=== PATIENT | female | born 1970 | race Caucasian/White ===

== ENCOUNTER → 2018-02-25 | Outpatient (CLI) | payer MEDICAID, BC ==
--- NOTE | 2018-02-25 09:59 | MR ---
EXAMINATION TYPE: MR hip LT wo con DATE OF EXAM: 02/25/2018 9:34 AM COMPARISON: NONE HISTORY: Chronic lt hip pain, no trauma TECHNIQUE: Multiplanar, multiecho imaging of the left hip is performed without IV contrast. FINDINGS: There is no evidence of avascular necrosis. There is no evidence of bursal inflammation. Mu scular insertions sites are unremarkable. There is only a small amount of joint fluid. The joint spac e appears maintained. The uterus is not identified. The ovaries are also not seen. IMPRESSION: 1. NO ACUTE OSSEOUS LESION. 2. NO DEFINITE BURSAL OR TENDINOUS ABNORMALITY.
== END | disposition home or self-care (01) ==
LOC: RADMRIMAIN 08:27
PROVIDERS: ATTEND Family Medicine
DX: M25.552 Pain in left hip (principal)

== ENCOUNTER → 2018-04-28 | Outpatient (CLI) | payer BC ==
--- NOTE | 2018-04-28 16:03 | XR ---
EXAMINATION TYPE: XR lumbar spine 2 or 3V DATE OF EXAM: 04/28/2018 CLINICAL HISTORY: pain TECHNIQUE: Three views of the lumbar spine are submitted. COMPARISON: None. FINDINGS: There are 5 lumbar type vertebral bodies identified. The lumbar spine shows satisfactory alignment w ithout evidence of acute fracture or dislocation. Vertebral body heights are within normal limits. Disc spaces are within normal limits. The overlying soft tissue appears unremarkable. IMPRESSION: No acute fracture or dislocation is seen in the lumbar spine. ICD 10 NO FRACTURE, INITIAL EVALUATION
== END ==
LOC: RADXRMAIN 15:34
PROVIDERS: ATTEND Orthopaedic Surgery
DX: M54.16 Radiculopathy, lumbar region (principal)
CPT/HCPCS: 72100

== ENCOUNTER → 2018-07-25 | Outpatient (CLI) | payer MEDICAID, BC ==
[2018-07-25 15:15] VITALS: BP 121/69; PULSE 85; TEMP 98; BMI 27.6
--- NOTE | 2018-07-25 17:11 | P.BASOAP ---
Subjective Progress Note Date: 07/25/18 Principal diagnosis: Morbid obesity Patient well-known to our service from previous lap band placement. Patient had been following at [facility]. Patient asking for a lap band adjustment. In June she had 0.2 mL added to her band. She does not feel much restriction. Denies reflux or vomiting. No abdominal pain. Objective - Vital Signs Vital signs: Vital Signs Temp 98 F 07/25/18 15:12 Pulse 85 07/25/18 15:12 Resp BP 121/69 07/25/18 15:12 Pulse Ox Intake & Output 07/24/18 07/25/18 07/25/18 18:59 06:59 18:59 Weight 77.564 kg - Exam Abdomen: Soft, nontender, nondistended Assessment/Plan (1) Morbid obesity Narrative/Plan: Will proceed with band adjustment. We'll tentatively and 0.2 mL at this time. The patient's lap band port was palpated. The site was aseptically prepped. The Pardo needle was advanced into the port. A total of 0.2 ml of fluid was added for total of 7.9 mL. Pressure was held and a sterile dressing was applied. Plan: Date: 07/25/18 Initial Weight: Initial BMI: Current Weight: 77.564 kg Current BMI: 27.6 Type of Surgery: Total Volume in Band: 7.9 Previous Volume: Volume Removed: Volume Added: 0.2 Band Size:
== END ==
LOC: BARWHC3 13:48
PROVIDERS: ATTEND Surgery
DX: E66.01 Morbid (severe) obesity due to excess calories (principal); Z68.27 Body mass index [BMI] 27.0-27.9, adult
CPT/HCPCS: 99212

== ENCOUNTER → 2018-08-01 | Outpatient (CLI) | payer MEDICAID, BC ==
--- NOTE | 2018-08-01 10:08 | FL ---
EXAMINATION TYPE: FL barium swallow DATE OF EXAM: 08/01/2018 LAP BANDING LIMITED ESOPHAGRAM: CLINICAL HISTORY: Lap band placed 8 years ago with recent increase filled but persistent feeling of weight gain per patient. GERD per order. TECHNIQUE: Limited esophagram is performed utilizing 2-3 oz of barium. A total of 17 seconds of fluo roscopic time was utilized during procedure. 26 images are saved including preprocedure regional rehabilitation director image. COMPARISON: Esophagram study September 30, 2010. FINDINGS: Pre-procedure regional rehabilitation director image shows lap band in stable and satisfactory position in proximal stomach just below the gastroesophageal junction. Cholecystectomy clips are incidentally noted. The patient then drank oral contrast. There is good flow of contrast along the course of the esophagu s. There is good flow of contrast along the course of the lap band, there is no evidence of contrast extravasation to suggest leak. There is no lap band slippage appreciated. IMPRESSION: No evidence of lap band slippage or significant obstruction. Images are saved for ordering surgeon.
== END | disposition home or self-care (01) ==
LOC: RADFLMAIN 09:20
PROVIDERS: ATTEND Surgery
DX: K21.9 Gastro-esophageal reflux disease without esophagitis (principal)
CPT/HCPCS: 74220

== ENCOUNTER 2018-08-15 19:10 | Emergency (ER) | payer MEDICAID, BC ==
--- NOTE | 2018-08-15 21:16 | ED ---
General Adult HPI - General Source: patient Mode of arrival: ambulatory Limitations: no limitations <Margaret Sanchez - Last Filed: 08/15/18 23:03> <Korin Rendon - Last Filed: 08/16/18 21:58> - General Chief complaint: Extremity Injury, Lower Stated complaint: Rt leg/poss blood clot Time Seen by Provider: 08/15/18 20:29 - History of Present Illness Initial comments: 48-year-old female patient presents to the emergency department today for evaluation of right posterior thigh and right posterior knee pain. Patient states that she has been having this pain since yesterday. Patient states about a week ago she did crawl through a window and sustained bruising to the posterior thigh and the right posterior calf. Patient states that things seem to be improving until she started having a new pain to these areas yesterday. Patient states she did have a d-dimer drawn and it was just over 2. Patient d oes have a history of MTHFR and is concerned she may have a blood clot. Patient denies any swelling to the leg. Denies any numbness or tingling. States she is able to ablate without difficulty. She denies any chest pain or shortness of breath. Patient denies any recent rash, fever, chills, abdominal pain, nausea, vomiting, diarrhea, constipation, back pain, numbness, tingling, dizziness, weak ness, hematuria, dysuria, urinary urgency, urinary frequency, headache, visual changes, or any other complaints. (Margaret Sanchez) - Related Data Home Medications Medication Instructions Recorded Confirmed No Known Home Medications 07/25/18 07/25/18 Allergies Allergy/AdvReac Type Severity Reaction Status Date / Time Penicillins Allergy Rash/Hives Verified 07/25/18 15:20 prednisone Allergy Dyspnea Verified 07/25/18 15:20 Sulfa (Sulfonamide Allergy Rash/Hives Verified 07/25/18 15:20 Antibiotics) Review of Systems ROS Other: All systems not noted in ROS Statement are negative. <Margaret Sanchez - Last Filed: 08/15/18 23:03> ROS Other: All systems not noted in ROS Statement are negative. <Korin Rendon - Last Filed: 08/16/18 21:58> ROS Statement: Those systems with pertinent positive or pertinent negative responses have been documented in the HPI. Past Medical History Past Medical History: No Reported History Additional Past Medical History / Comment(s): mthf History of Any Multi-Drug Resistant Organisms: None Reported Past Surgical History: Bariatric Surgery, Cholecystectomy, Hysterectomy Additional Past Surgical History / Comment(s): lap band surgery Past Anesthesia/Blood Transfusion Reactions: No Reported Reaction Past Psychological History: No Psychological Hx Reported Smoking Status: Never smoker Past Alcohol Use History: None Reported Past Drug Use History: None Reported <Margaret Sanchez M - Last Filed: 08/15/18 23:03> General Exam Limitations: no limitations General appearance: alert, in no apparent distress, other (Physical well- developed, well-nourished adult female patient in no acute distress. Vital signs upon presentation are temperature 98.1F, pulse 85, respirations 16, blood pressure 117/77, pulse ox 99% on room air.) Eye exam: Present: normal appearance, PERRL, EOMI. Absent: scleral icterus, conjunctival injection, periorbital swelling ENT exam: Present: normal exam, normal oropharynx, mucous membranes moist Respiratory exam: Present: normal lung sounds bilaterally. Absent: respiratory distress, wheezes, rales, rhonchi, stridor Cardiovascular Exam: Present: regular rate, normal rhythm, normal heart sounds. Absent: systolic murmur, diastolic murmur, rubs, gallop, clicks Extremities exam: Present: full ROM, tenderness (Numbness to the right posterior thigh and posterior any), normal capillary refill, other (There is ecchymosis noted to the right posterior thigh and right calf. Skin is otherwise pink, warm, dry. Cap refills less than 3 seconds. Pedal and posttibial pulses are 2+ and equal bilaterally. No swelling or erythema noted.). Absent: normal inspection, pedal edema, joint swelling, calf tenderness Neurological exam: Present: alert, oriented X3, CN II-XII intact Psychiatric exam: Present: normal affect, normal mood Skin exam: Present: warm, dry, intact, normal color. Absent: rash <Margaret Sanchez M - Last Filed: 08/15/18 23:03> Course Vital Signs 08/15/18 08/15/18 19:34 22:02 Temperature 98.1 F 97.8 F Pulse Rate 85 73 Respiratory 16 17 Rate Blood Pressure 117/77 106/94 O2 Sat by Pulse 99 99 Oximetry Medical Decision Making - Radiology Data Radiology results: report reviewed, image reviewed <Margaret Sanchez - Last Filed: 08/15/18 23:03> <Korin Rendon - Last Filed: 08/16/18 21:58> - Medical Decision Making 48-year-old female patient presents to the emergency department today for eval uation of right posterior thigh and knee pain. Physical examination does reveal ecchymosis to the right posterior thigh and right calf. Patient sustained his injuries or climb into a window. Patient states she has had increased pain since yesterday was concern for blood clot. Ultrasound was obtained and showed no evidence for DVT. We did discuss ice application and use of anti- inflammatory medication for pain relief. She is instructed to follow-up with her primary care physician for recheck in 1-2 days. Return parameters were discussed in detail. She verbalizes understanding and agrees with this plan. (Margaret Sanchez) I was available for consultation in the emergency department. The history and physical exam were done by the midlevel provider. I was consulted for this patient's care. I reviewed the case with the midlevel provider and based on their presentation of the patient, I agree with the assessment, medical decision making and plan of care as documented. (Korin Rendon) - Radiology Data Venous Doppler duplex of the right lower extremity was obtained. Report was reviewed in its entirety. Impression by Dr. Halina Naranjo shows negative for DVT. (Margaret Sanchez) Disposition Is patient prescribed a controlled substance at d/c from ED?: No Time of Disposition: 21:48 <Margaret Sanchez - Last Filed: 08/15/18 23:03> <Korin Rendon - Last Filed: 08/16/18 21:58> Clinical Impression: Contusion of right lower extremity Disposition: HOME SELF-CARE Condition: Good Instructions (If sedation given, give patient instructions): Contusion in Adults (ED) Additional Instructions: Apply ice to the painful areas. Follow-up with your primary care physician for recheck in 1-2 days. Return to the emergency department immediately for any new, worsening, or concerning symptoms. Referrals: Steven Simon DO [Primary Care Provider] - 1-2 days
--- NOTE | 2018-08-15 21:45 | US ---
EXAMINATION TYPE: US venous doppler duplex LE RT DATE OF EXAM: 08/15/2018 8:41 PM COMPARISON: NONE CLINICAL HISTORY: Pain. Pain. SIDE PERFORMED: Right TECHNIQUE: The lower extremity deep venous system is examined utilizing real time linear array sonog dean with graded compression, doppler sonography and color-flow sonography. VESSELS IMAGED: External Iliac Vein (EIV) Common Femoral Vein Deep Femoral Vein Greater Saphenous Vein * Femoral Vein Popliteal Vein Small Saphenous Vein * Proximal Calf Veins (* superficial vessels) FINDINGS: Grayscale, color doppler, spectral doppler imaging performed of the deep veins of the lower extremities. There is normal flow, compressibility, vascular waveforms. IMPRESSION: NEGATIVE FOR DVT, RIGHT LOWER EXTREMITY.
[2018-08-15 22:03] VITALS: BP 106/94; PULSE 73; RESP 17; TEMP 97.8
== END 2018-08-15 22:05 | disposition home or self-care (01) ==
LOC: EC 19:10
DX: S80.11XA Contusion of right lower leg, initial encounter (principal); S70.11XA Contusion of right thigh, initial encounter; R20.0 Anesthesia of skin; Z88.0 Allergy status to penicillin; Z88.2 Allergy status to sulfonamides; Z88.8 Allergy status to other drugs, medicaments and biological substances; X58.XXXA Exposure to other specified factors, initial encounter; Y93.39 Activity, other involving climbing, rappelling and jumping off
CPT/HCPCS: 99283

== ENCOUNTER → 2018-09-05 | Outpatient (CLI) | payer MEDICAID, BC ==
[2018-09-05 14:11] VITALS: BP 118/80; PULSE 70; RESP 16; TEMP 98.1; BMI 29.2
--- NOTE | 2018-09-05 16:31 | P.BASOAP ---
Subjective Progress Note Date: 09/05/18 Principal diagnosis: Morbid obesity Patient returns for follow-up. She has noticed a progressive decline in her restrictions since earlier this year. The patient has had a few small adjustments recently. The last adjustment was early July. She had 0.2 mL added. She felt some restriction for only a few days before that resolved. Here today for reevaluation. She did have an upper GI performed in early July which was normal. Objective - Vital Signs Vital signs: Vital Signs Temp 98.1 F 09/05/18 14:08 Pulse 70 09/05/18 14:08 Resp 16 09/05/18 14:08 BP 118/80 09/05/18 14:08 Pulse Ox Intake & Output 09/04/18 09/05/18 09/05/18 18:59 06:59 18:59 Weight 82.1 kg - Exam Abdomen: Soft, nontender, nondistended Assessment/Plan (1) Morbid obesity Narrative/Plan: Patient's band was sterilely accessed. The patient should have approximately 8 mL in the band. Instead only 4 mL was identified. Very slight cloudiness to the fluid was identified. Will check fluoroscopy esophagram. Possible lap band port replacement to follow. Plan: Date: 09/05/18 Initial Weight: 112.945 kg Initial BMI: 40.1 Current Weight: 82.1 kg Current BMI: 29.2 Type of Surgery: Total Volume in Band: 7.9 Previous Volume: Volume Removed: Volume Added: Band Size:
== END ==
LOC: BARWHC3 13:48
PROVIDERS: ATTEND Surgery
DX: E66.01 Morbid (severe) obesity due to excess calories (principal); Z68.29 Body mass index [BMI] 29.0-29.9, adult
CPT/HCPCS: 99212

== ENCOUNTER → 2018-09-15 | Outpatient (CLI) | payer MEDICAID, BC ==
--- NOTE | 2018-09-15 13:27 | P.PCN ---
Date of Procedure: 09/15/18 Procedure(s) Performed: PREOPERATIVE DIAGNOSIS: LAP-BAND system leak POSTOPERATIVE DIAGNOSIS: Leak from LAP-BAND port tubing PROCEDURE: Fluoroscopy fill SURGEON: Dorinda EBL: None ANESTHESIA: None COMPLICATIONS: None OPERATIVE PROCEDURE: Patient placed on the fluoroscopy table supine. The skin was prepped sterilely. The Pardo needle was advanced into the port. Using injectable contrast the system was evaluated. Immediately I was able to identify contrast leaking from the port tubing just adjacent to the junction with the port. No other identifiable leaks were seen. At that point the needle was withdrawn. Dressing applied. DISPOSITION: Stable for discharge
--- NOTE | 2018-09-15 14:14 | FL ---
EXAMINATION TYPE: FL guided adjust gastric band DATE OF EXAM: 09/15/2018 COMPARISON: NONE HISTORY: Possible lap band leak TECHNIQUE: Fluoroscopy. FINDINGS: Fluoroscopic guidance was provided during procedure performed by Dr. Seth. A total of 19 seconds of fluoroscopic time was utilized during the procedure and 2 spot images was acquired during injection of 5 cc of Isovue 370 under fluoroscopy. IMPRESSION: As Above.
== END | disposition home or self-care (01) ==
LOC: RADFLWHC 11:41
PROVIDERS: ATTEND Surgery
DX: K95.09 Other complications of gastric band procedure (principal); Z88.0 Allergy status to penicillin; Z88.2 Allergy status to sulfonamides; Z88.8 Allergy status to other drugs, medicaments and biological substances
CPT/HCPCS: 74240; Q9967

== ENCOUNTER 2018-10-13 10:42 | Day surgery (SDC) | payer MEDICAID, BC ==
[2018-10-12 11:55] VITALS: BMI 24.2
[~2018-10-13 10:42] MED LIST: HEPARIN SODIUM,PORCINE 5,000 UNIT/ML 1 ML VIAL SQ ONE; ceFAZolin IN SWFI 2 GM/20 ML SYRINGE IVP ONE
[2018-10-13] MEDS ORDERED: LIDOCAINE 1% 20 ML VIAL (10MG/ML) FOR IV START INTRADERMA ONE (11:10)
[2018-10-13] MEDS ORDERED: LACTATED RINGERS 1,000 ML IV ONE ×2 (11:10→14:10)
[2018-10-13] MEDS ORDERED: DEXAMETHASONE SOD PHOS (MDV) 100 MG/10 ML VIAL IV ONE (11:11)
[2018-10-13] MEDS ORDERED: ONDANSETRON 4 MG/2 ML VIAL IVP ONE ×2 (11:11→16:03)
--- NOTE | 2018-10-13 12:45 | P.GSHP ---
History of Present Illness H&P Date: 10/13/18 Chief Complaint: Malfunctioning LAP-BAND port 48-year-old female well known to our service. Patient has had problems with her LAP-BAND port recently. She noticed decreased restriction. Her band was filled on 2 separate occasions where there was not enough fluid present in the band. A fluoroscopic film was performed and confirmed a leak present at the connection between the lap band tubing and the port itself. Here today for port replacement. 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 History of Any Multi-Drug Resistant Organisms: None Reported Past Surgical History: Bariatric Surgery, Cholecystectomy, Hysterectomy Additional Past Surgical History / Comment(s): lap band surgery Past Anesthesia/Blood Transfusion Reactions: Postoperative Nausea & Vomiting (PONV) Additional Past Anesthesia/Blood Transfusion Reaction / Comment(s): no hx blood transfusion Smoking Status: Never smoker - Past Family History Mother Family Medical History: No Reported History Medications and Allergies Home Medications Medication Instructions Recorded Confirmed Type No Known Home Medications 07/25/18 10/13/18 History Allergies Allergy/AdvReac Type Severity Reaction Status Date / Time Penicillins Allergy Rash/Hives Verified 10/13/18 10:59 prednisone Allergy Dyspnea Verified 10/13/18 10:59 Sulfa (Sulfonamide Allergy Rash/Hives Verified 10/13/18 10:59 Antibiotics) Surgical - Exam Vital Signs Temp Pulse Resp BP Pulse Ox 99.4 F 72 16 121/70 98 10/13/18 10:55 10/13/18 10:55 10/13/18 10:55 10/13/18 10:55 10/13/18 10:55 Physical exam: General: Well-developed, well-nourished HEENT: Normocephalic, sclerae nonicteric Abdomen: Nontender, nondistended Extremities: No edema Neuro: Alert and oriented Assessment and Plan (1) Morbid obesity Narrative/Plan: Will proceed with laparoscopic replacement LAP-BAND port. We'll plan moving the patient's port from the left upper quadrant to the right upper quadrant at a new site. Risks of bleeding, infection, recurrent port malfunction, persistent leak from the band system, bowel injury, hernia, seroma. Patient understands and wishes to proceed. Current Visit: No Status: Acute Code(s): E66.01 - MORBID (SEVERE) OBESITY DUE TO EXCESS CALORIES SNOMED Code(s): 068863533
[2018-10-13] MEDS ORDERED: PROPOFOL 10 MG/ML 20 ML VIAL IV ONE (12:47)
[2018-10-13] MEDS ORDERED: KETOROLAC 30 MG/ML 1 ML VIAL ONE (12:47)
[2018-10-13] MEDS ORDERED: LIDOCAINE 1% INJ 10MG/ML (20 ML MDV) ONE (12:47)
[2018-10-13] MEDS ORDERED: GLYCOPYRROLATE 0.2 MG/ML 2 ML VIAL ONE (12:47)
[2018-10-13] MEDS ORDERED: fentaNYL (PF) 50 MCG/ML 2 ML AMP ONE (12:47)
[2018-10-13] MEDS ORDERED: MIDAZOLAM 2 MG/2 ML VIAL ONE (12:47)
[2018-10-13] MEDS ORDERED: ROCURONIUM BROMIDE 10 MG/ML 10 ML VIAL IV ONE (12:47)
[2018-10-13] MEDS ORDERED: diphenhydrAMINE 50 MG/ML 1 ML VIAL ONE (12:47)
[2018-10-13] MEDS ORDERED: NEOSTIGMINE 1 MG/ML 10 ML VIAL ONE (12:47)
[2018-10-13] MEDS ORDERED: BUPIVACAIN-EPI 0.5%-1:200,000 30 ML VIAL SQ ONE ×2 (13:26)
[2018-10-13] MEDS ORDERED: HYDROcodone/APAP 5-325MG 1 EACH TAB PO PRN (14:04)
[2018-10-13] MEDS ORDERED: NALOXONE 0.4 MG/ML 1 ML VIAL IV PRN (14:04)
--- NOTE | 2018-10-13 14:21 | P.OP ---
Date of Procedure: 10/13/18 Procedure(s) Performed: PREOPERATIVE DIAGNOSIS: Lap band port malfunction POSTOPERATIVE DIAGNOSIS: Same PROCEDURE: Laparoscopic LAP-BAND port removal and subsequent replacement SURGEON: Dorinda EBL: 5 Bernadette ANESTHESIA: Gen. COMPLICATIONS: None OPERATIVE PROCEDURE: Patient placed on the operating table in supine position. The patient was placed under general anesthesia. The previous port site was re- incised and the subcutaneous tissues were divided using electrocautery. The port was easily removed. There was noted to be an obvious defect in the tubing close to the port site at an area where the tubing had been kinked. The tubing was cut on the LAP-BAND side of the tubing connection. The tubing was reduced back into the peritoneal cavity. A 5 mm trocar was advanced and full insufflation took place. An additional incision was then made in the right upper quadrant horizontally. Dissection through the subcutaneous tissues took place using electrocautery. The fascia was freed of surrounding fat. A 5 mm trocar was advanced at the medial aspect of the incision directed medially. The tubing was then brought out through this site. The new port was then sutured down to the underlying fascia using 3 separate 0 Nurolon sutures. The port was flushed. A total of 4 mL was left within the band system. Subcutaneous tissues at both locations were closed using 4-0 Vicryl sutures. The skin was closed using a running 4-0 Monocryl stitch. Skin glue was applied. DISPOSITION: Stable to recovery room
[2018-10-13 14:26] VITALS: TEMP 96.8
[2018-10-13 15:05] VITALS: RESP 16
[2018-10-13] MEDS ORDERED: HYDROcodone/APAP 5-325MG 1 EACH TAB PO ONE (15:40)
[2018-10-13 15:52] VITALS: BP 115/74; PULSE 61
== END 2018-10-13 16:26 | disposition home or self-care (01) ==
LOC: OR 10:42
PROVIDERS: ATTEND Surgery
DX: K95.09 Other complications of gastric band procedure (principal); Y83.8 Other surgical procedures as the cause of abnormal reaction of the patient, or of later complication, without mention of misadventure at the time of the procedure; E66.01 Morbid (severe) obesity due to excess calories; Z88.0 Allergy status to penicillin; Z88.2 Allergy status to sulfonamides; Z90.49 Acquired absence of other specified parts of digestive tract; Z88.8 Allergy status to other drugs, medicaments and biological substances; Z68.24 Body mass index [BMI] 24.0-24.9, adult
CPT/HCPCS: 43659; J2250; J1200; J1644; J2710; J2405; J2001; J3010; J1885; J1100; J2704; J0690

== ENCOUNTER 2018-10-14 00:22 | Emergency (ER) | payer MEDICAID, BC ==
[2018-10-14 00:33] VITALS: RESP 20; TEMP 99.5
[2018-10-14] MEDS ORDERED: SODIUM CHLORIDE 0.9% 1,000 ML IV STA (01:09)
[2018-10-14] MEDS ORDERED: ONDANSETRON 4 MG/2 ML VIAL IVP STA (01:09)
--- NOTE | 2018-10-14 01:51 | ED ---
General Adult HPI - General Chief complaint: Nausea/Vomiting/Diarrhea Stated complaint: Post Surgery Nausea Time Seen by Provider: 10/14/18 00:33 Source: patient Mode of arrival: wheelchair Limitations: no limitations - History of Present Illness Initial comments: 48-year-old female patient presents to the emergency department today for evaluation of vomiting. Patient underwent lap band port removal and subsequent replacement earlier in the day today. She states for milliliters of saline was left within the lap band. States that she had been empty for the last month due to leakage from the port. Patient states once the medications wore off after surgery she developed nausea and began vomiting. States she's had several episodes of vomiting since. States she is having some upper abdominal discomfort related to vomiting. Reports no pain at rest. Denies any hematemesis with this. Denies any constipation or diarrhea. Denies any fever or chills. Patient denies any recent rash, shortness breath, chest pain, back pain, numbness, tingling, dizziness, weakness, hematuria, dysuria, urinary urgency, urinary frequency, headache, visual changes, or any other complaints. - Related Data Previous Rx's Medication Instructions Recorded Hydrocodone/Acetaminophen [[place] 1 tab PO Q6HR PRN 3 Days #10 tab 10/13/18 5-325] Ondansetron [Zofran ODT] 4 mg PO Q8HR PRN #10 tab 10/14/18 Allergies Allergy/AdvReac Type Severity Reaction Status Date / Time Penicillins Allergy Rash/Hives Verified 10/13/18 10:59 prednisone Allergy Dyspnea Verified 10/13/18 10:59 Sulfa (Sulfonamide Allergy Rash/Hives Verified 10/13/18 10:59 Antibiotics) Review of Systems ROS Statement: Those systems with pertinent positive or pertinent negative responses have been documented in the HPI. ROS Other: All systems not noted in ROS Statement are negative. 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 History of Any Multi-Drug Resistant Organisms: None Reported Past Surgical History: Bariatric Surgery, Cholecystectomy, Hysterectomy Additional Past Surgical History / Comment(s): lap band surgery Past Anesthesia/Blood Transfusion Reactions: Postoperative Nausea & Vomiting (PONV) Additional Past Anesthesia/Blood Transfusion Reaction / Comment(s): no hx blood transfusion Past Psychological History: No Psychological Hx Reported Smoking Status: Never smoker Past Alcohol Use History: None Reported Past Drug Use History: None Reported - Past Family History Mother Family Medical History: No Reported History General Exam Limitations: no limitations General appearance: alert, in no apparent distress, other (Physical well- developed, well-nourished adult female patient in no acute distress. Vital signs upon presentation are temperature 99.5F, pulse 86, respirations 20, blood pressure 109/75, pulse ox 98% on room air.) Eye exam: Present: normal appearance, PERRL, EOMI. Absent: scleral icterus, conjunctival injection, periorbital swelling ENT exam: Present: normal exam, normal oropharynx, mucous membranes moist Respiratory exam: Present: normal lung sounds bilaterally. Absent: respiratory distress, wheezes, rales, rhonchi, stridor Cardiovascular Exam: Present: regular rate, normal rhythm, normal heart sounds. Absent: systolic murmur, diastolic murmur, rubs, gallop, clicks GI/Abdominal exam: Present: soft, normal bowel sounds, other (Patient has 2 incisions 1 to the right and one to the left, well approximated with skin adhesive. No surrounding erythema or drainage noted.). Absent: distended, tenderness, guarding, rebound, rigid Neurological exam: Present: alert, oriented X3, CN II-XII intact Psychiatric exam: Present: normal affect, normal mood Skin exam: Present: warm, dry, intact, normal color. Absent: rash Course Vital Signs 10/14/18 10/14/18 10/14/18 00:29 02:16 03:04 Temperature 99.5 F Pulse Rate 86 114 H 104 H Respiratory 20 20 20 Rate Blood Pressure 109/75 117/70 110/69 O2 Sat by Pulse 98 99 98 Oximetry Medical Decision Making - Medical Decision Making 48-year-old female patient presented to the emergency department today for evaluation of nausea and vomiting. Patient is status post replacement of her gastric banding port. Physical examination is relatively unremarkable. She does have some mild incisional tenderness but is otherwise soft and nontender throughout the abdomen. Labs reviewed and are unremarkable. Patient was given IV nausea medication and pain medication here in the department. Upon reevaluation patient does report improvement of symptoms. I did offer admission for observation and evaluation by her surgeon tomorrow, she declined stating she would rather go home. She does feel comfortable being discharged at this time. She'll be given a prescription for Zofran. She is instructed to follow-up with her surgeon for recheck as soon as possible. She is instructed to return immediately for any new, worsening, or concerning symptoms. She verbalizes understanding and agrees with this plan. - Lab Data Result diagrams: 10/14/18 01:34 10/14/18 01:34 Lab Results 10/14/18 10/14/18 10/14/18 Range/Units 01:34 01:34 01:34 WBC 9.2 (3.8-10.6) k/uL RBC 4.88 (3.80-5.40) m/uL Hgb 13.1 (11.4-16.0) gm/dL Hct 41.4 (34.0-46.0) % MCV 84.9 (80.0-100.0) fL MCH 26.9 (25.0-35.0) pg MCHC 31.7 (31.0-37.0) g/dL RDW 13.3 (11.5-15.5) % Plt Count 295 (150-450) k/uL Neutrophils % 76 % Lymphocytes % 17 % Monocytes % 6 % Eosinophils % 1 % Basophils % 0 % Neutrophils # 6.9 (1.3-7.7) k/uL Lymphocytes # 1.5 (1.0-4.8) k/uL Monocytes # 0.5 (0-1.0) k/uL Eosinophils # 0.1 (0-0.7) k/uL Basophils # 0.0 (0-0.2) k/uL Sodium 138 (137-145) mmol/L Potassium 4.5 (3.5-5.1) mmol/L Chloride 105 (98-107) mmol/L Carbon Dioxide 26 (22-30) mmol/L Anion Gap 7 mmol/L BUN 14 (7-17) mg/dL Creatinine 0.77 (0.52-1.04) mg/dL Est GFR (CKD-EPI)AfAm >90 (>60 ml/min/1.73 sqM) Est GFR (CKD-EPI)NonAf >90 (>60 ml/min/1.73 sqM) Glucose 88 (74-99) mg/dL Calcium 9.3 (8.4-10.2) mg/dL Total Bilirubin 0.7 (0.2-1.3) mg/dL AST 31 (14-36) U/L ALT 22 (9-52) U/L Alkaline Phosphatase 72 (38-126) U/L Total Protein 7.4 (6.3-8.2) g/dL Albumin 4.3 (3.5-5.0) g/dL Amylase 73 (30-110) U/L Lipase 63 (23-300) U/L Urine Color Yellow Urine Appearance Cloudy H (Clear) Urine pH 5.5 (5.0-8.0) Ur Specific [place] 1.026 (1.001-1.035) Urine Protein Trace H (Negative) Urine Glucose (UA) Negative (Negative) Urine Ketones 2+ H (Negative) Urine Blood Negative (Negative) Urine Nitrite Negative (Negative) Urine Bilirubin Negative (Negative) Urine Urobilinogen <2.0 (<2.0) mg/dL Ur Leukocyte Esterase Negative (Negative) Urine RBC 3 (0-5) /hpf Urine WBC 4 (0-5) /hpf Ur Squamous Epith Cells 25 H (0-4) /hpf Urine Bacteria Rare H (None) /hpf Hyaline Casts 4 H (0-2) /lpf Urine Mucus Moderate H (None) /hpf - Radiology Data Radiology results: report reviewed, image reviewed One view x-ray of the abdomen is obtained. Impression by Dr. Petty shows gastric and appears to be rotated may be out of place. No bowel obstruction or free air. Disposition Clinical Impression: Post-operative nausea and vomiting Disposition: HOME SELF-CARE Condition: Good Instructions (If sedation given, give patient instructions): Acute Nausea and Vomiting (ED) Additional Instructions: Start with clear liquids and advance as tolerated. Follow up with your surgeon for recheck as soon as possible. Follow up with your primary care physician in 1-2 days. Return to the emergency department for any new, worsening, or concerning symptoms. Prescriptions: Ondansetron [Zofran ODT] 4 mg PO Q8HR PRN #10 tab PRN Reason: Nausea Is patient prescribed a controlled substance at d/c from ED?: No Referrals: Steven Simon DO [Primary Care Provider] - 1-2 days Cayetano Seth MD [Medical Doctor] - 1-2 days Time of Disposition: 03:40
[2018-10-14 01:59] LABS: Basophils % (A) 0 %; Eosinophils # (A) 0.1 k/uL (0-0.7); Eosinophils % (A) 1 %; HCT 41.4 % (34.0-46.0); HGB 13.1 gm/dL (11.4-16.0); Lymphocytes # (A) 1.5 k/uL (1.0-4.8); Lymphocytes % (A) 17 %; MCH 26.9 pg (25.0-35.0); MCHC 31.7 g/dL (31.0-37.0); MCV 84.9 fL (80.0-100.0); Mean Platelet Volume 6.7; Monocytes # (A) 0.5 k/uL (0-1.0); Monocytes % (A) 6 %; Neutrophils # (A) 6.9 k/uL (1.3-7.7); Neutrophils % (A) 76 %; Platelet Count 295 k/uL (150-450); RBC 4.88 m/uL (3.80-5.40); RDW 13.3 % (11.5-15.5); WBC 9.2 k/uL (3.8-10.6)
[2018-10-14 02:02] LABS: Appearance,Urine Cloudy (Clear); Bacteria,Urine Rare /hpf; Bilirubin,Urine Negative (Negative); Blood,Urine Negative (Negative); Color,Urine Yellow; Glucose,Urine (UA) Negative (Negative); Hyaline Casts,Urine 4 /lpf (0-2); Ketones,Urine 2+ (Negative); Leukocyte Esterase,Urine Negative (Negative); Mucus,Urine Moderate /hpf; Nitrite,Urine Negative (Negative); PH, Urine 5.5 (5.0-8.0); Protein,Urine Trace (Negative); RBC,Urine 3 /hpf (0-5); Specific Gravity,Urine 1.026 (1.001-1.035); Squamous Epithelial Cell,Urine 25 /hpf (0-4); Urobilinogen,Urine <2.0 mg/dL (<2.0); WBC,Urine 4 /hpf (0-5)
[2018-10-14] MEDS ORDERED: METOCLOPRAMIDE 5 MG/ML 2 ML VIAL IVP STA (02:05)
[2018-10-14] MEDS ORDERED: HYDROmorphone 1 MG/ML 1 ML SYRINGE IVP STA (02:05)
[2018-10-14] MEDS ORDERED: diphenhydrAMINE 50 MG/ML 1 ML VIAL IVP STA (02:05)
--- NOTE | 2018-10-14 02:10 | XR ---
EXAM: XR Abdomen, 1 View CLINICAL HISTORY: ITS.REASON XR Reason: abdominal pain TECHNIQUE: Frontal supine view of the abdomen/pelvis. COMPARISON: No relevant prior studies available. IMPRESSION: The gastric band appears to be rotated and may be out of place (phi angle is 80 degrees) on this view. Recommend CT of the abdomen and pelvis for better characterization. No bowel obstruction or free air.
[2018-10-14 02:13] LABS: ALT 22 U/L (9-52); AST 31 U/L (14-36); Albumin 4.3 g/dL (3.5-5.0); Alkaline Phosphatase 72 U/L (38-126); Amylase 73 U/L (30-110); Anion Gap 7 mmol/L; Blood Urea Nitrogen 14 mg/dL (7-17); Calcium 9.3 mg/dL (8.4-10.2); Carbon Dioxide 26 mmol/L (22-30); Chloride 105 mmol/L (98-107); Glucose 88 mg/dL (74-99); Lipase 63 U/L (23-300); Potassium 4.5 mmol/L (3.5-5.1); Sodium 138 mmol/L (137-145); Total Bilirubin 0.7 mg/dL (0.2-1.3); Total Protein 7.4 g/dL (6.3-8.2)
[2018-10-14 03:05] VITALS: BP 110/69; PULSE 104
[2018-10-14] MEDS ORDERED: ONDANSETRON 4 MG ODT STARTER PACK 2 TAB BTL PO STA (03:40)
== END 2018-10-14 03:55 | disposition home or self-care (01) ==
LOC: EC 00:22
DX: K91.0 Vomiting following gastrointestinal surgery (principal); Z88.0 Allergy status to penicillin; Z88.2 Allergy status to sulfonamides; Z88.8 Allergy status to other drugs, medicaments and biological substances; Z90.49 Acquired absence of other specified parts of digestive tract; Z98.84 Bariatric surgery status; Z53.20 Procedure and treatment not carried out because of patient's decision for unspecified reasons
CPT/HCPCS: 36415; 80053; 82150; 83690; 85025; 81001; 74018; 99283; 96374; 96375 ×3; 96361; J1200; J2765; J2405; J1170; S0119

== ENCOUNTER 2018-10-14 08:45 | Emergency (ER) | payer MEDICAID, BC ==
--- NOTE | 2018-10-14 09:11 | ED ---
General Adult HPI - General Chief complaint: Nausea/Vomiting/Diarrhea Stated complaint: nausea, vomiting Time Seen by Provider: 10/14/18 08:51 Source: patient, RN notes reviewed Mode of arrival: ambulatory Limitations: no limitations - History of Present Illness Initial comments: 48-year-old female presents to the emergency department for a chief complaint of nausea and vomiting. Patient is postop day 1 from a lap band replacement performed by Dr. Burleson. Patient states that she initially felt fine after being discharged home after her surgery but developed nausea and vomiting with some epigastric discomfort. Denies significant pain. Patient was seen in the emergency department last night and treated symptomatically then discharged home. Dr. Burleson had contacted patient this morning and wanted her to return to the emergency department for evaluation. Patient states she is still nauseous and vomiting. States she vomited on the way here but is a little bit better than before.Patient has no other complaints at this time including shortness of breath, chest pain, headache, or visual changes. - Related Data Previous Rx's Medication Instructions Recorded Hydrocodone/Acetaminophen [[place] 1 tab PO Q6HR PRN 3 Days #10 tab 10/13/18 5-325] Ondansetron [Zofran ODT] 4 mg PO Q8HR PRN #10 tab 10/14/18 Allergies Allergy/AdvReac Type Severity Reaction Status Date / Time Penicillins Allergy Rash/Hives Verified 10/14/18 09:43 prednisone Allergy Dyspnea Verified 10/14/18 09:43 Sulfa (Sulfonamide Allergy Rash/Hives Verified 10/14/18 09:43 Antibiotics) Review of Systems ROS Statement: Those systems with pertinent positive or pertinent negative responses have been documented in the HPI. ROS Other: All systems not noted in ROS Statement are negative. 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 History of Any Multi-Drug Resistant Organisms: None Reported Past Surgical History: Bariatric Surgery, Cholecystectomy, Hysterectomy Additional Past Surgical History / Comment(s): lap band surgery Past Anesthesia/Blood Transfusion Reactions: Postoperative Nausea & Vomiting (PONV) Additional Past Anesthesia/Blood Transfusion Reaction / Comment(s): no hx blood transfusion Past Psychological History: No Psychological Hx Reported Smoking Status: Never smoker Past Alcohol Use History: None Reported Past Drug Use History: None Reported - Past Family History Mother Family Medical History: No Reported History General Exam Limitations: no limitations General appearance: alert, in no apparent distress Head exam: Present: atraumatic, normocephalic, normal inspection Eye exam: Present: normal appearance, PERRL, EOMI. Absent: scleral icterus, co njunctival injection, periorbital swelling ENT exam: Present: normal exam, mucous membranes moist Neck exam: Present: normal inspection, full ROM. Absent: tenderness, meningismus, lymphadenopathy Respiratory exam: Present: normal lung sounds bilaterally. Absent: respiratory distress, wheezes, rales, rhonchi, stridor Cardiovascular Exam: Present: regular rate, normal rhythm, normal heart sounds. Absent: systolic murmur, diastolic murmur, rubs, gallop, clicks GI/Abdominal exam: Present: soft, normal bowel sounds, other (incisions noted, appear to be healing well). Absent: distended, tenderness, guarding, rebound, rigid Course Vital Signs 10/14/18 10/14/18 08:48 11:39 Temperature 99.0 F Pulse Rate 75 81 Respiratory 18 16 Rate Blood Pressure 114/75 O2 Sat by Pulse 98 98 Oximetry Medical Decision Making - Medical Decision Making 48-year-old female presents to the emergency department for chief complaint of nausea and vomiting status post lap band replacement yesterday. Patient also complains of some mild epigastric discomfort. Patient states symptoms have improved somewhat since last night however are still evident. Patient did rec eive a call from Dr. Burleson to come back to the emergency department. CBC and CMP obtained 8 hours ago are unremarkable. Urine did show 2+ ketones. X-ray KUB impression showed a gastric band that appears to be rotated it may be out of place (phi angle is 80 degrees) on this view. Recommended CT lsat night. Spoke with Dr. burleson who did come into the emergency department and removed 6.5 mls Recommended upper GI study. Radiologist was not able to come into the emergency department until 3 PM to perform this. Upper GI study showed that the esophagus distended normally with prompt egress of barium from esophagus through the lap band and into the stomach. No evidence of extremity of presentation, no evidence of prolapse. Scant amount of free air present. Patient reevaluated by myself and Dr. Arechiga, stating all her symptoms have resolved since readjustment. Dr. Arechiga had spoken with Dr. burleson and according to Dr Arechiga if GI study looked good Dr Burleson had given the go ahead to discharge the patient. Patient states Dr. Burleson had told her to follow up after her vacation. However if she has any worsening symptoms she will return here to the emergency department or contact Dr. burleson. Patient will follow up with primary care in 1-2 days. - Lab Data Result diagrams: 10/14/18 09:50 10/14/18 09:50 Lab Results 10/14/18 10/14/18 10/14/18 Range/Units 09:50 09:50 09:50 WBC 7.2 (3.8-10.6) k/uL RBC 4.51 (3.80-5.40) m/uL Hgb 12.1 (11.4-16.0) gm/dL Hct 38.3 (34.0-46.0) % MCV 84.9 (80.0-100.0) fL MCH 26.9 (25.0-35.0) pg MCHC 31.7 (31.0-37.0) g/dL RDW 13.5 (11.5-15.5) % Plt Count 266 (150-450) k/uL Neutrophils % 76 % Lymphocytes % 15 % Monocytes % 7 % Eosinophils % 1 % Basophils % 1 % Neutrophils # 5.5 (1.3-7.7) k/uL Lymphocytes # 1.1 (1.0-4.8) k/uL Monocytes # 0.5 (0-1.0) k/uL Eosinophils # 0.0 (0-0.7) k/uL Basophils # 0.0 (0-0.2) k/uL Sodium 140 (137-145) mmol/L Potassium 4.3 (3.5-5.1) mmol/L Chloride 108 H (98-107) mmol/L Carbon Dioxide 24 (22-30) mmol/L Anion Gap 8 mmol/L BUN 16 (7-17) mg/dL Creatinine 0.74 (0.52-1.04) mg/dL Est GFR (CKD-EPI)AfAm >90 (>60 ml/min/1.73 sqM) Est GFR (CKD-EPI)NonAf >90 (>60 ml/min/1.73 sqM) Glucose 87 (74-99) mg/dL Calcium 8.6 (8.4-10.2) mg/dL Total Bilirubin 0.7 (0.2-1.3) mg/dL AST 24 (14-36) U/L ALT 22 (9-52) U/L Alkaline Phosphatase 59 (38-126) U/L Total Protein 6.7 (6.3-8.2) g/dL Albumin 3.8 (3.5-5.0) g/dL Amylase 74 (30-110) U/L Lipase 79 (23-300) U/L Urine Color Yellow Urine Appearance Cloudy H (Clear) Urine pH 5.5 (5.0-8.0) Ur Specific [place] 1.030 (1.001-1.035) Urine Protein Trace H (Negative) Urine Glucose (UA) Negative (Negative) Urine Ketones 2+ H (Negative) Urine Blood Negative (Negative) Urine Nitrite Negative (Negative) Urine Bilirubin Negative (Negative) Urine Urobilinogen <2.0 (<2.0) mg/dL Ur Leukocyte Esterase Trace H (Negative) Urine RBC 1 (0-5) /hpf Urine WBC 4 (0-5) /hpf Ur Squamous Epith Cells 9 H (0-4) /hpf Urine Bacteria Rare H (None) /hpf Urine Mucus Occasional H (None) /hpf Urine Yeast (Budding) Rare H (None) /hpf Disposition Clinical Impression: Encounter for adjustment of gastric lap band, Nausea and vomiting Disposition: HOME SELF-CARE Condition: Good Instructions (If sedation given, give patient instructions): Acute Nausea and Vomiting (ED) Additional Instructions: Please follow up with Dr. Burleson as directed. Please return here if you have any worsening symptoms or continued vomiting. Is patient prescribed a controlled substance at d/c from ED?: No Referrals: Steven Simon DO [Primary Care Provider] - 1-2 days Cayetano Seth MD [Medical Doctor] - 1-2 days Time of Disposition: 16:12
[2018-10-14] MEDS ORDERED: SODIUM CHLORIDE 0.9% 1,000 ML IV STA (09:38)
[2018-10-14] MEDS ORDERED: ONDANSETRON 4 MG/2 ML VIAL IVP STA (09:38)
[2018-10-14 10:14] LABS: Basophils % (A) 1 %; Eosinophils % (A) 1 %; HCT 38.3 % (34.0-46.0); HGB 12.1 gm/dL (11.4-16.0); Lymphocytes # (A) 1.1 k/uL (1.0-4.8); Lymphocytes % (A) 15 %; MCH 26.9 pg (25.0-35.0); MCHC 31.7 g/dL (31.0-37.0); MCV 84.9 fL (80.0-100.0); Mean Platelet Volume 6.7; Monocytes # (A) 0.5 k/uL (0-1.0); Monocytes % (A) 7 %; Neutrophils # (A) 5.5 k/uL (1.3-7.7); Neutrophils % (A) 76 %; Platelet Count 266 k/uL (150-450); RBC 4.51 m/uL (3.80-5.40); RDW 13.5 % (11.5-15.5); WBC 7.2 k/uL (3.8-10.6)
[2018-10-14 10:19] LABS: ALT 22 U/L (9-52); AST 24 U/L (14-36); Albumin 3.8 g/dL (3.5-5.0); Alkaline Phosphatase 59 U/L (38-126); Amylase 74 U/L (30-110); Anion Gap 8 mmol/L; Blood Urea Nitrogen 16 mg/dL (7-17); Calcium 8.6 mg/dL (8.4-10.2); Carbon Dioxide 24 mmol/L (22-30); Chloride 108 mmol/L (98-107); Glucose 87 mg/dL (74-99); Lipase 79 U/L (23-300); Potassium 4.3 mmol/L (3.5-5.1); Sodium 140 mmol/L (137-145); Total Bilirubin 0.7 mg/dL (0.2-1.3); Total Protein 6.7 g/dL (6.3-8.2)
[2018-10-14 10:29] LABS: Appearance,Urine Cloudy (Clear); Bacteria,Urine Rare /hpf; Bilirubin,Urine Negative (Negative); Blood,Urine Negative (Negative); Budding Yeast,Urine Rare /hpf; Color,Urine Yellow; Glucose,Urine (UA) Negative (Negative); Ketones,Urine 2+ (Negative); Leukocyte Esterase,Urine Trace (Negative); Mucus,Urine Occasional /hpf; Nitrite,Urine Negative (Negative); PH, Urine 5.5 (5.0-8.0); Protein,Urine Trace (Negative); RBC,Urine 1 /hpf (0-5); Squamous Epithelial Cell,Urine 9 /hpf (0-4); Urobilinogen,Urine <2.0 mg/dL (<2.0); WBC,Urine 4 /hpf (0-5)
--- NOTE | 2018-10-14 11:13 | P.PN ---
Progress Note - Text Progress Note Date: 10/14/18 Patient came to the hospital last night with complaints of nausea and vomiting as well as abdominal pain. The patient underwent laparoscopic band port replacement yesterday. At the time of the port placement 4 mL was added to her band. I spoke with the ER physician early this morning about her. The plan at that time was for her to be placed in observation until I saw her this morning. When he came to the hospital today she was not here. Apparently she was able to tolerate liquids and she was discharged from the ER. I called her at home and she was still having issues with dysphagia and vomiting. She was sent back to the ER per my request. X-rays were reviewed from last night. The patient's band itself appears lower than anticipated suspicious for possible prolapse. This could be on the basis of a overly tight band with concentric dilation. The patient still having issues with nausea. Denies any significant pain. She and I decided to empty the band at this time. The band was accessed in a sterile manner. 6.5 mL was evacuated. Patient's that she had instant relief following that. We'll still plan upper GI while she is here to rule out the possibility of prolapse. If that study looks good Will plan discharge home.
[2018-10-14 11:40] VITALS: RESP 16
--- NOTE | 2018-10-14 15:07 | FL ---
EXAMINATION TYPE: FL UGI DATE OF EXAM ORDERED: 10/14/2018 2:58 PM HISTORY: Nausea and vomiting post lap band revision. COMPARISON: Previous KUB dated 10/14/2018.. FINDINGS: The patient drank contrast with ease. The esophagus distended normally with air and barium . There is prompt egress of barium from the esophagus, through the lap band into the stomach. There i s no evidence of extravasation. There is no evidence of prolapse. There is a scant amount of free air present. IMPRESSION: STATUS POST LAP BAND ADJUSTMENT.
[2018-10-14 16:28] VITALS: BP 117/73; PULSE 72; TEMP 98.3
== END 2018-10-14 16:27 | disposition home or self-care (01) ==
LOC: EC 08:45
DX: Z46.51 Encounter for fitting and adjustment of gastric lap band (principal); R11.2 Nausea with vomiting, unspecified; Z88.0 Allergy status to penicillin; Z88.2 Allergy status to sulfonamides; Z88.8 Allergy status to other drugs, medicaments and biological substances; Z90.49 Acquired absence of other specified parts of digestive tract; Z98.84 Bariatric surgery status
CPT/HCPCS: 36415; 80053; 82150; 83690; 85025; 81001; 74240; 99284; 96374; 96361; J2405

== ENCOUNTER → 2018-11-07 | Outpatient (CLI) | payer MEDICAID, BC ==
--- NOTE | 2018-11-07 14:02 | P.BASOAP ---
Subjective Progress Note Date: 11/07/18 Principal diagnosis: Morbid obesity Patient returns today after recent laparoscopic replacement of her lap band port. During the procedure her port was filled with fluid. Unfortunately the day following the procedure she had dysphagia and required emptying of her band. A total of 6.5 mL was evacuated on 10/14. Since that time she has done well with no complaints. No pain. No dysphagia. Band feels empty. Objective - Exam Abdomen: Soft, nondistended, incisions clean and dry Assessment/Plan (1) Morbid obesity Narrative/Plan: Will fill the patient's lap band at this time. 4 mL added aseptically. Follow- up 1 month. Plan: Date: Initial Weight: 112.945 kg Initial BMI: Current Weight: Current BMI: Type of Surgery: Total Volume in Band: 7.9 Previous Volume: Volume Removed: Volume Added: Band Size:
[2018-11-08 09:04] VITALS: BP 116/77; PULSE 78; TEMP 98.2; BMI 31.5
== END | disposition home or self-care (01) ==
LOC: BARWHC3 12:57
PROVIDERS: ATTEND Surgery
DX: Z48.815 Encounter for surgical aftercare following surgery on the digestive system (principal); K95.09 Other complications of gastric band procedure; E66.01 Morbid (severe) obesity due to excess calories; Z98.84 Bariatric surgery status; Z68.31 Body mass index [BMI] 31.0-31.9, adult
CPT/HCPCS: 99212

== ENCOUNTER 2018-11-18 18:13 | Emergency (ER) | payer MEDICAID, BC ==
[2018-11-18] MEDS ORDERED: ONDANSETRON 4 MG/2 ML VIAL IVP STA (18:46)
[2018-11-18] MEDS ORDERED: SODIUM CHLORIDE 0.9% 1,000 ML IV STA (18:46)
[2018-11-18] MEDS ORDERED: KETOROLAC 30 MG/ML 1 ML VIAL IVP STA (18:46)
[2018-11-18 19:08] LABS: Basophils % (A) 0 %; Eosinophils % (A) 1 %; HCT 41.4 % (34.0-46.0); Lymphocytes # (A) 2.3 k/uL (1.0-4.8); Lymphocytes % (A) 37 %; MCH 26.2 pg (25.0-35.0); MCHC 31.4 g/dL (31.0-37.0); MCV 83.6 fL (80.0-100.0); Mean Platelet Volume 6.5; Monocytes # (A) 0.4 k/uL (0-1.0); Monocytes % (A) 6 %; Neutrophils # (A) 3.4 k/uL (1.3-7.7); Neutrophils % (A) 54 %; Platelet Count 251 k/uL (150-450); RBC 4.95 m/uL (3.80-5.40); RDW 13.5 % (11.5-15.5); WBC 6.3 k/uL (3.8-10.6)
[2018-11-18 19:17] VITALS: RESP 18
[2018-11-18 19:20] LABS: Appearance,Urine Cloudy (Clear); Bacteria,Urine Moderate /hpf; Bilirubin,Urine Negative (Negative); Blood,Urine Negative (Negative); Color,Urine Yellow; Glucose,Urine (UA) Negative (Negative); Ketones,Urine 1+ (Negative); Leukocyte Esterase,Urine Negative (Negative); Mucus,Urine Many /hpf; Nitrite,Urine Negative (Negative); PH, Urine 5.5 (5.0-8.0); Protein,Urine 1+ (Negative); Specific Gravity,Urine 1.032 (1.001-1.035); Squamous Epithelial Cell,Urine 13 /hpf (0-4); Urobilinogen,Urine <2.0 mg/dL (<2.0)
[2018-11-18 19:21] LABS: ALT 23 U/L (9-52); AST 23 U/L (14-36); African American GFR (CKD) >90 (>60 ml/min/1.73 sqM); Albumin 4.1 g/dL (3.5-5.0); Alkaline Phosphatase 69 U/L (38-126); Anion Gap 8 mmol/L; Blood Urea Nitrogen 14 mg/dL (7-17); Carbon Dioxide 28 mmol/L (22-30); Chloride 104 mmol/L (98-107); Glucose 82 mg/dL (74-99); Lipase 88 U/L (23-300); Potassium 4.2 mmol/L (3.5-5.1); Sodium 140 mmol/L (137-145); Total Bilirubin 0.8 mg/dL (0.2-1.3)
--- NOTE | 2018-11-18 19:42 | CT ---
EXAMINATION TYPE: CT abdomen pelvis w con DATE OF EXAM: 11/18/2018 COMPARISON: None HISTORY: Right side abdominal pain CT DLP: 902.4 mGycm Automated exposure control for dose reduction was used. TECHNIQUE: Helical acquisition of images was performed from the lung bases through the pelvis. CONTRAST: Performed without Oral Contrast and with IV Contrast, patient injected with 100 mL of Isovue 300. FINDINGS: Heart appears normal. There is bariatric surgery with sling around the gastric fundus. There are clip s from cholecystectomy. Liver appears normal. The bile ducts are not dilated. Spleen appears normal. There is no pancreatic mass. There is no adrenal mass. Kidneys show satisfactory contrast opacification. There is no hydronephrosi s. There is no retroperitoneal adenopathy. Bladder distends smoothly. There is no free fluid in the p mariana. There are numerous phleboliths in the pelvis. Appendix appears normal. There is no inguinal hernia. There is no mesenteric edema. There is no ascites. There is no sign of f ree air. IMPRESSION: PREVIOUS BARIATRIC SURGERY. NORMAL APPENDIX. NO SIGN OF ACUTE ABDOMEN AND PELVIS.
--- NOTE | 2018-11-18 20:06 | ED ---
Abdominal Pain HPI - General Chief Complaint: Abdominal Pain Stated Complaint: right side pain Time Seen by Provider: 11/18/18 18:24 Source: patient Mode of arrival: ambulatory Limitations: no limitations - History of Present Illness Initial Comments: Patient is a 48-year-old female presenting to the emergency Department with complaints of lower right-sided quadrant pain times this morning. Patient also admits to associated nausea. Patient states the pain has been increasing since this afternoon. Patient has history of gastric lap band, cholecystectomy, and partial hysterectomy. Patient denies fever, chills, vomiting, diarrhea. Patient's last bowel movement was yesterday and was normal. Patient denies any recent travel. No other complaints at this time. - Related Data Home Medications Medication Instructions Recorded Confirmed Triamterene-Hctz 37.5-25Mg 1 cap PO DAILY 11/18/18 11/18/18 [Dyazide 37.5-25 Capsule] Previous Rx's Medication Instructions Recorded Ondansetron Odt [Zofran Odt] 4 mg PO Q8HR PRN #10 tab 11/18/18 Allergies Allergy/AdvReac Type Severity Reaction Status Date / Time Penicillins Allergy Rash/Hives Verified 11/18/18 19:07 prednisone Allergy Dyspnea Verified 11/18/18 19:07 Sulfa (Sulfonamide Allergy Rash/Hives Verified 11/18/18 19:07 Antibiotics) Review of Systems ROS Statement: Those systems with pertinent positive or pertinent negative responses have been documented in the HPI. ROS Other: All systems not noted in ROS Statement are negative. 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 History of Any Multi-Drug Resistant Organisms: None Reported Past Surgical History: Bariatric Surgery, Cholecystectomy, Hysterectomy Additional Past Surgical History / Comment(s): lap band surgery lap band port r eplacement 5-19 Past Anesthesia/Blood Transfusion Reactions: Postoperative Nausea & Vomiting (PONV) Additional Past Anesthesia/Blood Transfusion Reaction / Comment(s): no hx blood transfusion Past Psychological History: No Psychological Hx Reported Smoking Status: Never smoker Past Alcohol Use History: None Reported Past Drug Use History: None Reported - Past Family History Mother Family Medical History: No Reported History General Exam - General Exam Comments Initial Comments: GENERAL: Well-appearing, well-nourished and in no acute distress. HEAD: Atraumatic, normocephalic. EYES: Pupils equal round and reactive to light, extraocular movements intact, sclera anicteric, conjunctiva are normal. ENT: TMs normal, nares patent, oropharynx clear without exudates. Moist mucous membranes. NECK: Normal range of motion, supple without lymphadenopathy or JVD. LUNGS: Breath sounds clear to auscultation bilaterally and equal. No wheezes rales or rhonchi. HEART: Regular rate and rhythm without murmurs, rubs or gallops. ABDOMEN: TTP right lower quadrant, + guarding. Soft, normoactive bowel sounds. No masses appreciated. Port for the LAP-BAND can be felt in the upper right quadrant. : Deferred EXTREMITIES: Normal range of motion, no pitting or edema. No clubbing or cyanosis. NEUROLOGICAL: Cranial nerves II through XII grossly intact. Normal speech, normal gait. PSYCH: Normal mood, normal affect. SKIN: Warm, Dry, normal turgor, no rashes or lesions noted. Limitations: no limitations Course Vital Signs 11/18/18 11/18/18 18:19 19:14 Temperature 98.2 F Pulse Rate 61 Respiratory 16 18 Rate Blood Pressure 119/78 O2 Sat by Pulse 100 Oximetry Medical Decision Making - Medical Decision Making Patient is a 48-year-old female complaining of right lower quadrant pain times today. Patient reports associated nausea. Patient has history of lap band procedure, cholecystectomy, and partial cystectomy. Patient has been afebrile. CBC, CMP, UA are all within normal limits. CT of the abdomen and pelvis shows no sign of acute abdomen and pelvis. Normal appendix. Patient feels better with fluids, Toradol and Zofran. Patient will be discharged home. Patient and are okay with this plan. Case discussed with Dr. Carrasco. - Lab Data Result diagrams: 11/18/18 18:36 11/18/18 18:36 Lab Results 11/18/18 11/18/18 11/18/18 Range/Units 18:36 18:36 18:36 WBC 6.3 (3.8-10.6) k/uL RBC 4.95 (3.80-5.40) m/uL Hgb 13.0 (11.4-16.0) gm/dL Hct 41.4 (34.0-46.0) % MCV 83.6 (80.0-100.0) fL MCH 26.2 (25.0-35.0) pg MCHC 31.4 (31.0-37.0) g/dL RDW 13.5 (11.5-15.5) % Plt Count 251 (150-450) k/uL Neutrophils % 54 % Lymphocytes % 37 % Monocytes % 6 % Eosinophils % 1 % Basophils % 0 % Neutrophils # 3.4 (1.3-7.7) k/uL Lymphocytes # 2.3 (1.0-4.8) k/uL Monocytes # 0.4 (0-1.0) k/uL Eosinophils # 0.0 (0-0.7) k/uL Basophils # 0.0 (0-0.2) k/uL Sodium 140 (137-145) mmol/L Potassium 4.2 (3.5-5.1) mmol/L Chloride 104 (98-107) mmol/L Carbon Dioxide 28 (22-30) mmol/L Anion Gap 8 mmol/L BUN 14 (7-17) mg/dL Creatinine 0.72 (0.52-1.04) mg/dL Est GFR (CKD-EPI)AfAm >90 (>60 ml/min/1.73 sqM) Est GFR (CKD-EPI)NonAf >90 (>60 ml/min/1.73 sqM) Glucose 82 (74-99) mg/dL Calcium 9.0 (8.4-10.2) mg/dL Total Bilirubin 0.8 (0.2-1.3) mg/dL AST 23 (14-36) U/L ALT 23 (9-52) U/L Alkaline Phosphatase 69 (38-126) U/L Total Protein 7.0 (6.3-8.2) g/dL Albumin 4.1 (3.5-5.0) g/dL Lipase 88 (23-300) U/L Urine Color Yellow Urine Appearance Cloudy H (Clear) Urine pH 5.5 (5.0-8.0) Ur Specific Stella 1.032 (1.001-1.035) Urine Protein 1+ H (Negative) Urine Glucose (UA) Negative (Negative) Urine Ketones 1+ H (Negative) Urine Blood Negative (Negative) Urine Nitrite Negative (Negative) Urine Bilirubin Negative (Negative) Urine Urobilinogen <2.0 (<2.0) mg/dL Ur Leukocyte Esterase Negative (Negative) Urine WBC 4 (0-5) /hpf Ur Squamous Epith Cells 13 H (0-4) /hpf Urine Bacteria Moderate H (None) /hpf Urine Mucus Many H (None) /hpf Disposition Clinical Impression: Abdominal pain, Nausea Disposition: HOME SELF-CARE Condition: Stable Instructions (If sedation given, give patient instructions): Abdominal Pain (ED) Additional Instructions: Please return to the Emergency Department if symptoms worsen or any other concerns. Prescriptions: Ondansetron Odt [Zofran Odt] 4 mg PO Q8HR PRN #10 tab PRN Reason: Nausea Is patient prescribed a controlled substance at d/c from ED?: No Referrals: Steven Simon DO [Primary Care Provider] - 1-2 days
[2018-11-18 20:08] VITALS: BP 115/66; PULSE 87; TEMP 98.4
== END 2018-11-18 20:23 | disposition home or self-care (01) ==
LOC: EC 18:13
DX: R10.31 Right lower quadrant pain (principal); R11.0 Nausea; Z98.84 Bariatric surgery status; Z90.49 Acquired absence of other specified parts of digestive tract; Z90.711 Acquired absence of uterus with remaining cervical stump; Z79.899 Other long term (current) drug therapy; Z88.0 Allergy status to penicillin; Z88.8 Allergy status to other drugs, medicaments and biological substances; Z88.2 Allergy status to sulfonamides
CPT/HCPCS: 36415; 80053; 83690; 85025; 81001; 74177; 99284; 96374; 96375; 96361; J2405; J1885; Q9967

== ENCOUNTER → 2018-11-21 | Outpatient (CLI) | payer MEDICAID, BC ==
[2018-11-21 14:36] VITALS: BP 128/78; PULSE 73; TEMP 98.2; BMI 31.5
--- NOTE | 2018-11-21 14:41 | P.BASOAP ---
Subjective Progress Note Date: 11/21/18 Principal diagnosis: Morbid obesity Patient here today in follow-up. Patient had 4 mL added on 11/07. Still feels minimal restriction. No nausea or vomiting. Objective - Vital Signs Vital signs: Vital Signs Temp 98.2 F 11/21/18 14:33 Pulse 73 11/21/18 14:33 Resp BP 128/78 11/21/18 14:33 Pulse Ox Intake & Output 11/20/18 11/21/18 11/21/18 18:59 06:59 18:59 Weight 88.677 kg - Exam Abdomen: Soft, nontender, nondistended Assessment/Plan (1) Morbid obesity Narrative/Plan: Patient interested in additional adjustment. We'll add 1 mL for a total of 5 mL. Follow-up in 1-2 months. Plan: Date: 11/21/18 Initial Weight: 112.945 kg Initial BMI: 40.1 Current Weight: 88.677 kg Current BMI: 31.5 Type of Surgery: Total Volume in Band: 5 Previous Volume: Volume Removed: Volume Added: 1 Band Size:
== END ==
LOC: BARWHC3 14:11
PROVIDERS: ATTEND Surgery
DX: E66.01 Morbid (severe) obesity due to excess calories (principal); Z68.31 Body mass index [BMI] 31.0-31.9, adult
CPT/HCPCS: 99212

== ENCOUNTER → 2018-11-24 | Outpatient (CLI) | payer MEDICAID, BC ==
[2018-11-24 11:57] VITALS: BP 122/69; PULSE 74; TEMP 98.8
--- NOTE | 2018-11-24 12:18 | P.BASOAP ---
Subjective Progress Note Date: 11/24/18 Principal diagnosis: Dysphagia Patient seen in the bariatric center earlier this week. Patient had 1 mL added to her band. Now feeling reflex and tightness. Would like the band loosened. Objective - Vital Signs Vital signs: Vital Signs Temp 98.8 F 11/24/18 11:49 Pulse 74 11/24/18 11:49 Resp BP 122/69 11/24/18 11:49 Pulse Ox Intake & Output 11/23/18 11/24/18 11/24/18 18:59 06:59 18:59 Weight 84.414 kg - Exam Abdomen: Soft, nontender, nondistended Assessment/Plan (1) Morbid obesity Narrative/Plan: Caesar is the patient's band at this time. 0.5 mL removed sterilely. Patient tolerating liquids well. Plan: Date: 11/24/18 Initial Weight: 112.945 kg Initial BMI: 40.1 Current Weight: 84.414 kg Current BMI: 30.0 Type of Surgery: Total Volume in Band: 5 Previous Volume: Volume Removed: Volume Added: Band Size:
== END | disposition home or self-care (01) ==
LOC: BARWHC3 11:15
PROVIDERS: ATTEND Surgery
DX: Z46.51 Encounter for fitting and adjustment of gastric lap band (principal); E66.01 Morbid (severe) obesity due to excess calories; Z68.30 Body mass index [BMI] 30.0-30.9, adult
CPT/HCPCS: 99212

== ENCOUNTER → 2018-12-05 | Outpatient (CLI) | payer MEDICAID, BC ==
[2018-12-05 14:33] VITALS: BP 110/73; PULSE 76; RESP 16; TEMP 98; BMI 30.3
--- NOTE | 2018-12-05 15:58 | P.BASOAP ---
Subjective Progress Note Date: 12/05/18 Principal diagnosis: Morbid obesity Patient doing well at this time. Would like more fluid added to the band. Some improved restriction however. No vomiting. Objective - Vital Signs Vital signs: Vital Signs Temp 98 F 12/05/18 15:03 Pulse 76 12/05/18 15:03 Resp 16 12/05/18 15:03 BP 110/73 12/05/18 15:03 Pulse Ox Intake & Output 12/04/18 12/05/18 12/05/18 18:59 06:59 18:59 Weight 85.275 kg - Exam Abdomen: Soft, nontender, nondistended Assessment/Plan (1) Morbid obesity Narrative/Plan: Patient doing well at this time. We'll add 0.3 mL for a total of 4.8 mL. Patient tolerated water following that. Follow-up in 1-2 months. Plan: Date: 12/05/18 Initial Weight: 112.945 kg Initial BMI: 40.1 Current Weight: 85.275 kg Current BMI: 30.3 Type of Surgery: Total Volume in Band: 0.3 Previous Volume: 4.5 Volume Removed: Volume Added: 0.3 Band Size:
== END | disposition home or self-care (01) ==
LOC: BARWHC3 13:48
PROVIDERS: ATTEND Surgery
DX: Z46.51 Encounter for fitting and adjustment of gastric lap band (principal); E66.01 Morbid (severe) obesity due to excess calories; Z68.30 Body mass index [BMI] 30.0-30.9, adult
CPT/HCPCS: 99212

== ENCOUNTER → 2019-01-09 | Outpatient (CLI) | payer MEDICAID, BC ==
[2019-01-09 14:22] VITALS: BP 121/82; PULSE 77; RESP 16; TEMP 98.1; BMI 29.3
--- NOTE | 2019-01-09 15:44 | P.BASOAP ---
Subjective Progress Note Date: 01/09/19 Principal diagnosis: Morbid obesity Patient here today for follow-up visit. She is requesting additional lap band fill. She was previously too tight when we went from 4-5 mL. She is currently at 4.8 mL and would like to try 5 mL again. She has last 6 pounds since last visit. Objective - Vital Signs Vital signs: Vital Signs Temp 98.1 F 01/09/19 14:20 Pulse 77 01/09/19 14:20 Resp 16 01/09/19 14:20 BP 121/82 01/09/19 14:20 Pulse Ox Intake & Output 01/08/19 01/09/19 01/09/19 18:59 06:59 18:59 Weight 82.554 kg - Exam Abdomen: Soft, nontender, nondistended Assessment/Plan (1) Morbid obesity Narrative/Plan: Will add 0.2 mL for a total of 5 mL today.The patient's lap band port was palpated. The site was aseptically prepped. The Pardo needle was advanced into the port. A total of 0.2 ml of fluid was added. Pressure was held and a sterile dressing was applied. Plan: Date: 01/09/19 Initial Weight: 112.945 kg Initial BMI: 40.1 Current Weight: 82.554 kg Current BMI: 29.3 Type of Surgery: Total Volume in Band: 0.5 Previous Volume: Volume Removed: Volume Added: 0.2 Band Size:
== END | disposition home or self-care (01) ==
LOC: BARWHC3 14:11
PROVIDERS: ATTEND Surgery
DX: Z46.51 Encounter for fitting and adjustment of gastric lap band (principal); E66.01 Morbid (severe) obesity due to excess calories; Z68.29 Body mass index [BMI] 29.0-29.9, adult
CPT/HCPCS: 99212

== ENCOUNTER → 2019-02-15 | Outpatient (CLI) | payer MEDICAID, BC ==
--- NOTE | 2019-02-16 10:04 | ECHOF ---
Referral Reason:Edema R60.0, Palpitations R00.2 MEASUREMENTS -------- HEIGHT: 170.2 cm WEIGHT: 76.2 kg BP: IVSd: 0.9 cm (0.6 - 1.1) LVIDd: 4.7 cm (3.9 - 5.3) LVPWd: 0.9 cm (0.6 - 1.1) IVSs: 1.0 cm LVIDs: 3.0 cm LVPWs: 1.2 cm LA Diam: 3.0 cm (2.7 - 3.8) LAESV Index (A-L): 17.85 ml/m TAPSE: 2.2 cm EPSS: 0.3 cm MV E Denny: 0.81 m/s MV DecT: 201 ms MV A Denny: 0.74 m/s MV E/A Ratio: 1.10 RAP: 5.00 mmHg RVSP: 24.79 mmHg MV EF SLOPE: 83.03 mm/s (70 - 150) MV EXCURSION: 1.45 cm (> 18.000) FINDINGS -------- Sinus rhythm. This was a technically adequate study. LV size, wall thickness and systolic function are normal, with an EF greater than 55%. The left manju tricular size is normal. The diastolic filling pattern is normal for the age of the patient 7.75. The right ventricle is normal in size. Left atrium is normal size by volume. The right atrial size is normal. The aortic valve is trileaflet, and appears structurally normal. No aortic stenosis or regurgitation. The mitral valve is normal. Mild mitral regurgitation is present. The tricuspid valve appears structurally normal. Mild tricuspid regurgitation present. There is n o evidence of pulmonary hypertension. The right ventricular systolic pressure, as measured by Doppl er, is 24.79mmHg. There is no pulmonic regurgitation present. The aortic root size is normal. There is no pericardial effusion. CONCLUSIONS -------- 1. Sinus rhythm. 2. LV size, wall thickness and systolic function are normal, with an EF greater than 55%. 3. The left ventricular size is normal. 4. The diastolic filling pattern is normal for the age of the patient 7.75 5. Left atrium is normal size by volume. 6. The aortic valve is trileaflet, and appears structurally normal. No aortic stenosis or regurgitati on. 7. Mild mitral regurgitation is present. 8. Mild tricuspid regurgitation present. 9. There is no evidence of pulmonary hypertension. 10. There is no pulmonic regurgitation present. 11. The aortic root size is normal. 12. There is no pericardial effusion. FOOD VENDOR: Tona Prieto RDCS
== END | disposition home or self-care (01) ==
LOC: RADECHMAIN 13:00
PROVIDERS: ATTEND Family Medicine
DX: I08.1 Rheumatic disorders of both mitral and tricuspid valves (principal)
CPT/HCPCS: 93306

== ENCOUNTER → 2019-02-20 | Outpatient (CLI) | payer MEDICAID, BC ==
[2019-02-20 13:48] VITALS: BP 135/75; PULSE 75; TEMP 98.2; BMI 29.2
--- NOTE | 2019-02-20 17:23 | P.BASOAP ---
Subjective Progress Note Date: 02/20/19 Principal diagnosis: Morbid obesity Patient returns to the bariatric clinic. Requesting additional fluid. Restriction is present although not quite enough. No nausea or vomiting. No reflux. Objective - Vital Signs Vital signs: Vital Signs Temp 98.2 F 02/20/19 13:41 Pulse 75 02/20/19 13:41 Resp BP 135/75 02/20/19 13:41 Pulse Ox Intake & Output 02/19/19 02/20/19 02/20/19 18:59 06:59 18:59 Weight 82.1 kg - Exam Abdomen: Soft, nontender, nondistended Assessment/Plan (1) Morbid obesity Narrative/Plan: Patient doing fairly well. We'll add 0.2 mL to the band at this time. Follow- up 1-2 months. Plan: Date: 02/20/19 Initial Weight: 112.945 kg Initial BMI: 40.1 Current Weight: 82.1 kg Current BMI: 29.2 Type of Surgery: Adjustable Gastric Banding Total Volume in Band: 5.2 Previous Volume: 5.0 Volume Removed: Volume Added: 0.2 Band Size:
== END | disposition home or self-care (01) ==
LOC: BARWHC3 12:59
PROVIDERS: ATTEND Surgery
DX: E66.01 Morbid (severe) obesity due to excess calories (principal); Z68.29 Body mass index [BMI] 29.0-29.9, adult
CPT/HCPCS: 99212

== ENCOUNTER → 2019-02-21 | Outpatient (CLI) | payer MEDICAID, BC ==
--- NOTE | 2019-02-22 13:27 | NM ---
EXAMINATION TYPE: NM thyroid image w uptake DATE OF EXAM: 02/22/2019 COMPARISON: NONE HISTORY: Hyperthyroidism with abnormal TSH TECHNIQUE: Thyroid iodine uptake is calculated and images performed after the oral administration of 307 uCi 1-123 Capsule. FINDINGS: There is normal distribution of activity throughout the gland. The 4 hour iodine uptake is calculated at 7.3% (normal range 8-14%). The 24-hour iodine uptake is calculated at 26.9% (normal ra nge 15-35%). There is homogeneous uptake throughout the thyroid gland. No substernal extent. IMPRESSION: Equivocal exam as there is slightly low thyroid uptake at 4 hours however uptake is withi n normal limits at 24 hours. Radiotracer is homogeneous throughout the thyroid gland without autonomo us functioning thyroid nodule nor cold nodule seen. No substernal extension of the thyroid gland.
== END | disposition home or self-care (01) ==
LOC: RADNMMAIN 09:00
PROVIDERS: ATTEND Family Medicine
DX: R94.6 Abnormal results of thyroid function studies (principal); E03.9 Hypothyroidism, unspecified
CPT/HCPCS: 78014; A9516

== ENCOUNTER → 2019-04-19 | Outpatient (CLI) | payer MEDICAID, BC ==
[2019-04-19 13:27] VITALS: BP 123/75; PULSE 75; TEMP 98.3; BMI 29.0
--- NOTE | 2019-04-19 21:00 | P.BASOAP ---
Subjective Progress Note Date: 04/19/19 Principal diagnosis: Morbid obesity Patient here today requesting an adjustment. Patient doing well otherwise. Does not have enough restriction. Would like 0.2 mL added. Objective - Vital Signs Vital signs: Vital Signs Temp 98.3 F 04/19/19 13:23 Pulse 75 04/19/19 13:23 Resp BP 123/75 04/19/19 13:23 Pulse Ox Intake & Output 04/19/19 04/19/19 04/20/19 06:59 18:59 06:59 Weight 81.647 kg - Exam Abdomen: Soft, nontender, nondistended Assessment/Plan (1) Morbid obesity Narrative/Plan: Will add 0.2 mL to her band for a total of 5.4 mL. Plan: Date: 04/19/19 Initial Weight: 112.945 kg Initial BMI: 40.1 Current Weight: 81.647 kg Current BMI: 29.0 Type of Surgery: Adjustable Gastric Banding Total Volume in Band: 5.2 Previous Volume: Volume Removed: Volume Added: Band Size:
== END | disposition home or self-care (01) ==
LOC: BARWHC3 12:46
PROVIDERS: ATTEND Surgery
DX: E66.01 Morbid (severe) obesity due to excess calories (principal); Z68.29 Body mass index [BMI] 29.0-29.9, adult
CPT/HCPCS: 99212

== ENCOUNTER → 2019-05-15 | Outpatient (CLI) | payer MEDICAID, BC ==
[2019-05-15 13:17] VITALS: BP 115/72; PULSE 69; TEMP 98.2; BMI 28.2
--- NOTE | 2019-05-15 20:59 | P.BASOAP ---
Subjective Progress Note Date: 05/15/19 Principal diagnosis: Morbid obesity Patient returns today for evaluation. Doing well since last visit. She has lost 5 pounds. Denies vomiting. No reflux. She is unsure whether she wants a band adjustment. Objective - Vital Signs Vital signs: Vital Signs Temp 98.2 F 05/15/19 13:14 Pulse 69 05/15/19 13:14 Resp BP 115/72 05/15/19 13:14 Pulse Ox Intake & Output 05/15/19 05/15/19 05/16/19 06:59 18:59 06:59 Weight 79.379 kg - Exam Abdomen: Soft, nontender, nondistended Assessment/Plan (1) Morbid obesity Narrative/Plan: Patient doing well at this time. Will hold off on further band adjustment at this time. Continue to monitor symptoms. Patient will call for appointment if needed. Plan: Date: 05/15/19 Initial Weight: 112.945 kg Initial BMI: 40.1 Current Weight: 79.379 kg Current BMI: 28.2 Type of Surgery: Total Volume in Band: 5.2 Previous Volume: Volume Removed: Volume Added: Band Size:
== END | disposition home or self-care (01) ==
LOC: BARWHC3 12:48
PROVIDERS: ATTEND Surgery
DX: E66.01 Morbid (severe) obesity due to excess calories (principal); Z68.28 Body mass index [BMI] 28.0-28.9, adult; Z98.84 Bariatric surgery status
CPT/HCPCS: 99211

== ENCOUNTER → 2019-05-28 | Outpatient (CLI) | payer MEDICAID, BC ==
--- NOTE | 2019-05-28 16:04 | MR ---
EXAMINATION TYPE: MR cervical spine wo con DATE OF EXAM: 05/28/2019 COMPARISON: None HISTORY: Left Radiculitis / R/o herniated Disc TECHNIQUE: Multiplanar, multisequence images of the cervical spine were acquired. FINDINGS: Cervical spine vertebral bodies maintain normal vertebral body heights and alignment. Multi level disc desiccation is seen. Cervical spinal cord signal is within normal limits. There is straigh tening of usual cervical lordosis. C2-C3: There is a small central disc osteophyte complex seen. No spinal canal stenosis or neural fora blanca narrowing. C3-C4: There is a left foraminal disc herniation superimposed on a broad-based disc bulge creating se mack left neural foraminal narrowing. Moderate neural foraminal narrowing is seen. There is slight na rrowing of the ventral subarachnoid space although CSF is preserved and the ventral spinal canal. No spinal canal stenosis. C4-C5: Central disc herniation is seen effacing the ventral subarachnoid space and contacting the cor d with mild impression on the spinal cord. There is also uncovertebral hypertrophy and a broad-based disc bulge creating moderate bilateral neural foraminal narrowing. Overall mild spinal canal stenosis . C5-C6: There is a central disc herniation and broad-based disc bulge with uncovertebral hypertrophy c reating mild right and moderate left neural foraminal narrowing and mild spinal canal stenosis. The d isc herniation contacts the ventral cervical cord. C6-C7: There is a left foraminal disc herniation and uncovertebral hypertrophy with facet arthropathy creating severe bilateral neural foraminal narrowing and mild spinal canal stenosis. C7-T1: There is a left paracentral disc osteophyte complex mildly narrowing the left neural foramen. Right neuroforamen is also mildly narrowed by uncovertebral hypertrophy. Spinal canal is patent. IMPRESSION: 1. Central disc herniations at C2-C3, C4-C5, and C5-C6 and left foraminal disc herniation at C3-C4 as well as at C6-C7. There is resultant mild spinal canal stenosis at C4-C5, C5-C6 and C6-C7. 2. Moderate multilevel degenerative disc disease creating variable degrees of neural foraminal narrow ing as detailed above at each level. 3. Straightening of usual cervical lordosis may relate to muscular strain/spasm or patient positionin g.
== END | disposition home or self-care (01) ==
LOC: RADMRIMAIN 12:10
PROVIDERS: ATTEND Family Medicine
DX: M48.02 Spinal stenosis, cervical region (principal); M50.21 Other cervical disc displacement, high cervical region; M50.30 Other cervical disc degeneration, unspecified cervical region; M54.10 Radiculopathy, site unspecified
CPT/HCPCS: 72141

== ENCOUNTER → 2020-09-23 | Outpatient (CLI) | payer MEDICAID ==
--- NOTE | 2020-09-23 13:28 | MR ---
MRI CERVICAL SPINE: CLINICAL HISTORY: Herniated cervical disc and cervicalgia with radiculopathy per order. Headaches wit h neck pain going into left arm for over one year per patient TECHNIQUE: Multiplanar, multisequence imaging of the cervical spine is performed without IV contrast. COMPARISON: MRI cervical spine May 28, 2019. FINDINGS: Sagittal images of the cervical spine show the craniocervical junction to remain within nor mal limits. The cervical and upper thoracic spinal cord remains normal in caliber and signal. Verte bral alignment is stable and satisfactory. The vertebral body heights remain normal. [id number] e multilevel disc space narrowing and mild multilevel anterior spurring redemonstrated. The bone uriah ow signal intensity remains within normal limits. Axial images at C2-C3 level remain within normal limits. Axial images at C3-C4 level demonstrates broad-based lobulated protrusion with left foraminal disc pr otrusion component causing moderate right and moderate to severe left-sided neural foraminal narrowin g along with anterior spinal canal effacement.. No significant change from prior. Axial images at C4-C5 level show lobulated broad-based posterior disc protrusion with posterior spurr ing effacing the anterior thecal sac nearly up to the ventral surface of spinal cord and uncovertebra l facet degenerative changes bilaterally causing moderate to advanced bilateral neural foraminal narr owing. No significant change from prior. Axial images at C5-C6 level show lobulated posterior disc protrusion with right paracentral component effacing anterior thecal sac up to the ventral surface of spinal cord, there is uncovertebral facet and marginal spurring causing mild right and moderate left-sided neural foraminal narrowing. No signi ficant change from prior. Axial images at C6-C7 level shows lobulated posterior disc protrusion and uncovertebral facet arthrop athy effacing the anterolateral thecal sac and causing moderate to severe left greater than right kellie ateral neural foraminal narrowing. No significant change from prior. Axial images at C7-T1 level shows stable left paracentral spur disc complex mildly efface the anterio r thecal sac, mild bilateral neural foraminal narrowing redemonstrated. No significant change from pr ior. IMPRESSION: Straightening of cervical spine with multilevel degenerative changes greatest at C3-C4, C 4-C5, and C6-C7 levels as detailed above. No significant interval degenerative progression from prior MRI.
== END | disposition home or self-care (01) ==
LOC: RADMRIMAIN 12:38
PROVIDERS: ATTEND Family Medicine
DX: M50.123 Cervical disc disorder at C6-C7 level with radiculopathy (principal); M99.71 Connective tissue and disc stenosis of intervertebral foramina of cervical region; M47.22 Other spondylosis with radiculopathy, cervical region
CPT/HCPCS: 72141

== ENCOUNTER → 2020-09-25 | Outpatient (CLI) | payer MEDICAID ==
--- NOTE | 2020-09-25 12:16 | US ---
EXAMINATION TYPE: US venous doppler duplex LE RT DATE OF EXAM: 09/25/2020 12:07 PM COMPARISON: US 2019 CLINICAL HISTORY: M79.66 R leg pain. Right leg pain SIDE PERFORMED: Right TECHNIQUE: The lower extremity deep venous system is examined utilizing real time linear array sonog dean with graded compression, doppler sonography and color-flow sonography. VESSELS IMAGED: Common Femoral Vein Deep Femoral Vein Greater Saphenous Vein * Femoral Vein Popliteal Vein Small Saphenous Vein * Proximal Calf Veins (* superficial vessels) Right Leg: Appears negative for DVT IMPRESSION: Grayscale, color doppler, spectral doppler imaging performed of the deep veins of the lo wer extremities. There is normal flow, compressibility, vascular waveforms.
== END | disposition home or self-care (01) ==
LOC: RADUSWWP 11:44
PROVIDERS: ATTEND Family Medicine
DX: M79.661 Pain in right lower leg (principal)

== ENCOUNTER 2021-11-12 07:26 | Emergency (ER) | payer MEDICAID ==
[2021-11-12 07:37] VITALS: RESP 18
[2021-11-12] MEDS ORDERED: SODIUM CHLORIDE 0.9% 500 ML 500 ML IV STA (07:58)
--- NOTE | 2021-11-12 08:01 | ED ---
General Adult HPI - General Chief complaint: Shortness of Breath Stated complaint: elevated ddimer with sob Time Seen by Provider: 11/12/21 07:50 Source: patient, RN notes reviewed, old records reviewed Mode of arrival: ambulatory Limitations: no limitations - History of Present Illness Initial comments: Well-appearing 51-year-old female presents to the emergency room with complaints of elevated d-dimer sent by primary care doctor. Patient states that for the past week she has had some shortness of breath with joint swelling. Patient states that her doctor tanmay labs this morning and found she had an elevated d- dimer. She states that she has had rapid heart rate over the past week intermittently. She denies any medical history, does not take any medication on a daily basis. She denies any nausea or vomiting. She does complain of chest tightness and left calf pain. -: week(s) (1) Location: chest Quality: other (tightness) Consistency: intermittent Associated Symptoms: shortness of breath, other (left calf pain) - Related Data Home Medications Medication Instructions Recorded Confirmed Triamterene-Hctz 37.5-25Mg 1 cap PO DAILY 11/18/18 05/15/19 [Dyazide 37.5-25 Capsule] Previous Rx's Medication Instructions Recorded Azithromycin [Zithromax] 500 mg PO DAILY #5 tab 11/12/21 Allergies Allergy/AdvReac Type Severity Reaction Status Date / Time Penicillins Allergy Rash/Hives Verified 11/12/21 07:37 prednisone Allergy Dyspnea Verified 11/12/21 07:37 Sulfa (Sulfonamide Allergy Rash/Hives Verified 11/12/21 07:37 Antibiotics) Review of Systems ROS Statement: Those systems with pertinent positive or pertinent negative responses have been documented in the HPI. ROS Other: All systems not noted in ROS Statement are negative. 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 History of Any Multi-Drug Resistant Organisms: None Reported Past Surgical History: Bariatric Surgery, Cholecystectomy, Hysterectomy Additional Past Surgical History / Comment(s): lap band surgery (lap band port replacement 5-19) Past Anesthesia/Blood Transfusion Reactions: Postoperative Nausea & Vomiting (PONV) Additional Past Anesthesia/Blood Transfusion Reaction / Comment(s): no hx blood transfusion Past Psychological History: No Psychological Hx Reported Smoking Status: Never smoker Past Alcohol Use History: None Reported Past Drug Use History: None Reported - Past Family History Mother Family Medical History: No Reported History General Exam Limitations: no limitations General appearance: alert, in no apparent distress Eye exam: Present: normal appearance. Absent: scleral icterus, conjunctival injection, periorbital swelling ENT exam: Present: normal exam, normal oropharynx, mucous membranes moist Expanded Neck exam: Absent: tenderness, midline deformity, anterior neck swelling, carotid bruit, tracheal deviation Respiratory exam: Present: normal lung sounds bilaterally. Absent: respiratory distress, accessory muscle use Cardiovascular Exam: Present: regular rate, normal rhythm, normal heart sounds. Absent: JVD Extremities exam: Present: normal inspection, normal capillary refill, calf tenderness (left). Absent: pedal edema Right Neurovascular tendon exam: Present: no vascular compromise. Absent: abnormal cap refill, extremity cold to touch, pallor, foot drop Left Lower Leg exam: Present: full ROM, tenderness (Calf pain). Absent: swelling Ankle exam: Present: full ROM. Absent: tenderness, swelling Foot/Toe exam: Present: full ROM. Absent: tenderness, swelling Neurovascular tendon exam: Present: no vascular compromise. Absent: abnormal cap refill, extremity cold to touch, foot drop Back exam: Absent: CVA tenderness (R), CVA tenderness (L) Neurological exam: Present: alert, oriented X3 Psychiatric exam: Present: normal affect, normal mood Skin exam: Present: warm, dry, normal color. Absent: cyanosis, diaphoretic, petechiae, pallor Course Vital Signs 11/12/21 11/12/21 11/12/21 07:31 11:19 12:15 Temperature 98.0 F 97.8 F Pulse Rate 74 60 72 Respiratory 18 18 18 Rate Blood Pressure 105/71 123/75 120/70 O2 Sat by Pulse 98 100 100 Oximetry EKG Findings - EKG Results: EKG: sinus rhythm (Ventricular rate 70, MO interval 0.160, QRS 0.86, QTC 0.399) Medical Decision Making - Medical Decision Making Patient was sent for elevated d-dimer by primary care doctor after shortness of breath for one week. D-dimer at her primary care doctor this morning was 1.63, CRP is 42.7. No evidence of leukocytosis. Patient denies any fevers. Troponin is negative, coronavirus swab is negative. I have a low suspicion that this is cardiac in nature with a normal troponin and EKG, low HEART scrore. CT angiogram of the chest performed for an elevated d-dimer and shows an acute inflammatory process with reactive hilar lymphadenopathy. There are scattered faint groundglass micronodules in both lungs mainly in the middle lobe and right lower lobe. No central pulmonary embolism noted. Ultrasound the left leg due to calf pain is negative for DVT. Case discussed with Dr. Toure. She will be treated with a Z-Yadiel for atypical pneumonia which she states was very called in by her primary care doctor as well. She was instructed to return to the emergency room with any new or concerning symptoms including increased chest pain or difficulty in breathing. She is agreeable to this plan of care. - Lab Data Lab Results 11/12/21 11/12/21 11/12/21 Range/Units 05:00 09:01 10:12 PT 10.3 (9.0-12.0) sec INR 0.9 (<1.2) APTT 24.2 (22.0-30.0) sec Troponin I <0.012 (0.000-0.034) ng/mL Coronavirus (PCR) Not Detected (Not Detectd) Disposition Clinical Impression: Atypical pneumonia Disposition: HOME SELF-CARE Condition: Good Instructions (If sedation given, give patient instructions): Pneumonia (ED) Additional Instructions: take antibiotics as prescribed and follow-up with the primary care doctor next week. Return to the emergency room with any new or concerning symptoms including worsening shortness of breath or chest pain. Prescriptions: Azithromycin [Zithromax] 500 mg PO DAILY #5 tab Is patient prescribed a controlled substance at d/c from ED?: No Referrals: Steven Simon DO [Primary Care Provider] - 1-2 days Time of Disposition: 11:42
[2021-11-12 08:56] LABS: INR 0.9 (<1.2); Partial Thromboplastin Time 24.2 sec (22.0-30.0); Prothrombin Time 10.3 sec (9.0-12.0)
--- NOTE | 2021-11-12 09:21 | CT ---
EXAMINATION TYPE: CT angio chest DATE OF EXAM: 11/12/2021 COMPARISON: NONE HISTORY: Shortness of breath, elevated d-dimer CT DLP: 238.9 mGy.cm. Automated Exposure Control for Dose Reduction was Utilized. TECHNIQUE AND CONTRAST: CTA scan of the thorax is performed with IV Contrast, patient injected with 100 mL of Isovue 300, [facility] angiogram protocol. MIP Images are created on an independent workstation and reviewed. FINDINGS: No definite filling defect within the pulmonary trunk, main pulmonary arteries, lobar, segmental and proximal subsegmental branches to suggest pulmonary embolism. Distal subsegmental branches are subopt imally assessed. No gross cardiomegaly. Scattered areas of subtle groundglass opacities mainly seen in the middle lobe and right lower lobe w ith scattered faint groundglass micronodules in both lungs, likely representing acute inflammatory/in fectious process. Patent trachea and main bronchi. No pleural or pericardial effusion. Prominent bilateral hilar lymph nodes measuring up to 9 mm on the right side and 7 mm on the left gabriela e, possibly reactive. Gastric lap band with dilated gastroesophageal junction and apparently thickene d midportion of the esophagus, esophagitis cannot be excluded, please correlate clinically. Previous cholecystectomy. No aggressive bone lesion. IMPRESSION: No major or central pulmonary embolism. The above-described nonspecific pulmonary changes could be related to acute inflammatory/infectious p rocess with possible reactive hilar lymphadenopathy as described above. Recommend clinical correlatio n and follow-up to complete resolution in 2-3 months. Other findings as described above.
--- NOTE | 2021-11-12 10:16 | US ---
EXAMINATION TYPE: US venous doppler duplex LE LT DATE OF EXAM: 11/12/2021 9:50 AM COMPARISON: NONE CLINICAL HISTORY: 51 year-old female rule out DVT, left leg pain and edema. Elevated D-Dimer SIDE PERFORMED: left TECHNIQUE: The lower extremity deep venous system is examined utilizing real time linear array sonog dean with graded compression, doppler sonography and color-flow sonography. FINDINGS: VESSELS IMAGED: Common Femoral Vein Deep Femoral Vein Greater Saphenous Vein * Femoral Vein Popliteal Vein Small Saphenous Vein * Proximal Calf Veins (* superficial vessels) Left Leg: No evidence of DVT IMPRESSION: No evidence for DVT within the left lower extremity imaged from the groin to the upper calf.
[2021-11-12 14:37] VITALS: BP 120/70; PULSE 72; TEMP 97.8
== END 2021-11-12 12:16 | disposition home or self-care (01) ==
LOC: EC 07:26
DX: J18.9 Pneumonia, unspecified organism (principal); I10 Essential (primary) hypertension; Z20.822 Contact with and (suspected) exposure to COVID-19; Z88.0 Allergy status to penicillin; Z88.2 Allergy status to sulfonamides; Z88.8 Allergy status to other drugs, medicaments and biological substances
CPT/HCPCS: 36415; 93005; 84484; 85610; 85730; 87635; 93971; 71275; 99285; Q9967

== ENCOUNTER 2023-04-28 08:55 | Observation (INO) | payer MEDICAID ==
[2023-04-28] MEDS ORDERED: ONDANSETRON 4 MG/2 ML VIAL IVP STA (10:18)
[2023-04-28] MEDS ORDERED: KETOROLAC 15 MG/ML 1 ML VIAL IVP STA (10:18)
[2023-04-28] MEDS ORDERED: SODIUM CHLORIDE 0.9% 1,000 ML IV STA (10:18)
--- NOTE | 2023-04-28 10:18 | ED ---
Abdominal Pain HPI - General Chief Complaint: Abdominal Pain Stated Complaint: Abd Pain Time Seen by Provider: 04/28/23 09:15 Source: patient Mode of arrival: ambulatory Limitations: no limitations - History of Present Illness Initial Comments: 53-year-old female who presents to the emergency department with right periumbilical, right lower quadrant abdominal pain. She states that she had the pain last night with an episode of vomiting. The pain continued into today. She does have a history of a lap band. She is status post hysterectomy and chol ecystectomy. She denies any fevers. No changes in her bowel or bladder habits. No other alleviating, precipitating or modifying factors - Related Data Home Medications Medication Instructions Recorded Confirmed Omeprazole 40 mg PO DAILY PRN 04/28/23 04/28/23 Allergies Allergy/AdvReac Type Severity Reaction Status Date / Time Penicillins Allergy Rash/Hives, Verified 04/28/23 14:30 difficulty breathing prednisone Allergy Dyspnea Verified 04/28/23 14:30 Sulfa (Sulfonamide Allergy Rash/Hives, Verified 04/28/23 14:30 Antibiotics) difficulty breathing Review of Systems ROS Statement: Those systems with pertinent positive or pertinent negative responses have been documented in the HPI. ROS Other: All systems not noted in ROS Statement are negative. 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 History of Any Multi-Drug Resistant Organisms: None Reported Past Surgical History: Bariatric Surgery, Cholecystectomy, Hysterectomy Additional Past Surgical History / Comment(s): lap band surgery (lap band port replacement 5-19) Past Anesthesia/Blood Transfusion Reactions: Postoperative Nausea & Vomiting (PONV) Additional Past Anesthesia/Blood Transfusion Reaction / Comment(s): no hx blood transfusion Past Psychological History: No Psychological Hx Reported Smoking Status: Never smoker Past Alcohol Use History: None Reported Past Drug Use History: None Reported - Past Family History Mother Family Medical History: No Reported History General Exam Limitations: no limitations General appearance: alert, in no apparent distress Head exam: Present: atraumatic, normocephalic, normal inspection Eye exam: Present: normal appearance, PERRL, EOMI. Absent: scleral icterus, conjunctival injection, periorbital swelling ENT exam: Present: normal exam, mucous membranes moist Neck exam: Present: normal inspection. Absent: tenderness, meningismus, ly mphadenopathy Respiratory exam: Present: normal lung sounds bilaterally. Absent: respiratory distress, wheezes, rales, rhonchi, stridor Cardiovascular Exam: Present: regular rate, normal rhythm, normal heart sounds. Absent: systolic murmur, diastolic murmur, rubs, gallop, clicks GI/Abdominal exam: Present: soft, tenderness (over the site of the patients lap band resevoir), normal bowel sounds. Absent: distended, guarding, rebound, rigid Extremities exam: Present: normal inspection, full ROM, normal capillary refill. Absent: tenderness, pedal edema, joint swelling, calf tenderness Back exam: Present: normal inspection Neurological exam: Present: alert, oriented X3, CN II-XII intact Psychiatric exam: Present: normal affect, normal mood Skin exam: Present: warm, dry, intact, normal color. Absent: rash Course Vital Signs 04/28/23 04/28/23 04/28/23 09:10 11:12 17:40 Temperature 98.4 F Pulse Rate 72 65 61 Pulse Rate [ Pulse Oximetery ] Respiratory 16 20 18 Rate Blood Pressure 118/83 98/68 111/67 Blood Pressure [Left Arm] O2 Sat by Pulse 99 99 99 Oximetry 04/28/23 04/28/23 20:00 20:52 Temperature 98.1 F 98.1 F Pulse Rate 64 Pulse Rate [ 58 L Pulse Oximetery ] Respiratory 16 18 Rate Blood Pressure 108/62 Blood Pressure 116/70 [Left Arm] O2 Sat by Pulse 99 94 L Oximetry Medical Decision Making - Medical Decision Making Was pt. sent in by a medical professional or institution (, PA, LINE HELPER, urgent care, hospital, or fci...) When possible be specific @ -No Did you speak to anyone other than the patient for history (EMS, parent, family, police, friend...)? What history was obtained from this source @ -No Did you review nursing and triage notes (agree or disagree)? Why? @ -I reviewed and agree with nursing and triage notes Were old charts reviewed (outside hosp., previous admission, EMS record, old EKG, old radiological studies, urgent care reports/EKG's, fci records)? Report findings @ -No old charts were reviewed Differential Diagnosis (chest pain, altered mental status, abdominal pain women, abdominal pain men, vaginal bleeding, weakness, fever, dyspnea, syncope, headache, dizziness, GI bleed, back pain, seizure, CVA, palpatations, mental health, musculoskeletal)? @ -bowel obstruction, appendicitis, pyelonephritis EKG interpreted by me (3pts min.). @ -not done X-rays interpreted by me (1pt min.). @ -None done CT interpreted by me (1pt min.). @ -No acute process U/S interpreted by me (1pt. min.). @ -None done What testing was considered but not performed or refused? (CT, X-rays, U/S, labs)? Why? @ -None What meds were considered but not given or refused? Why? @ -None Did you discuss the management of the patient with other professionals (professionals i.e. , PA, LINE HELPER, lab, RT, psych nurse, social organization professor, mechanical service representative, teacher, parole or probation officer, employment evaluator/case manager)? Give summary @ -dr. dugan Was smoking cessation discussed for >3mins.? @ -No Was critical care preformed (if so, how long)? @ -No Were there social determinants of health that impacted care today? How? (Homelessness, low income, unemployed, alcoholism, drug addiction, transportation, low edu. Level, literacy, decrease access to med. care, assisted, rehab)? @ -No Was there de-escalation of care discussed even if they declined (Discuss DNR or withdrawal of care, Hospice)? DNR status @ -No What co-morbidities impacted this encounter? (DM, HTN, Smoking, COPD, CAD, Ca ncer, CVA, ARF, Chemo, Hep., AIDS, mental health diagnosis, sleep apnea, morbid obesity)? @ -obesity with gastric band placement Was patient admitted / discharged? Hospital course, mention meds given and route, prescriptions, significant lab abnormalities, going to OR and other pertinent info. @ -Upon arrival patient was seen in hallway 19. Her history and physical exam was performed. Patient does have tenderness over the site of her lap band reservoir. IV is established. Laboratory studies were conducted. She does go for CT. Results the CT are discussed with Dr. Paniagua. He does evaluate the patient emergency department. Due to her persistent pain she will be admitted for serial abdominal exams. Patient agreeable to this plan and she is awaiting a bed on the floor in stable condition Undiagnosed new problem with uncertain prognosis? @ -No Drug Therapy requiring intensive monitoring for toxicity (Heparin, Nitro, Insulin, Cardizem)? @ -No Were any procedures done? @ -No Diagnosis/symptom? @ -acute abd pain,, hx lap band Acute, or Chronic, or Acute on Chronic? @ -acute Uncomplicated (without systemic symptoms) or Complicated (systemic symptoms)? @ -complicated Side effects of treatment? @ -No Exacerbation, Progression, or Severe Exacerbation? @ -No Poses a threat to life or bodily function? How? (Chest pain, [place], [place], pneumonia, PE, COPD, DKA, ARF, appy, cholecystitis, CVA, Diverticulitis, Homicidal, Suicidal, threat to staff... and all critical care pts) @ -No - Lab Data Result diagrams: 04/29/23 05:33 04/29/23 05:33 Lab Results 04/28/23 04/28/23 04/28/23 Range/Units 10:24 10:24 10:24 WBC 4.1 (3.8-10.6) k/uL RBC 4.80 (3.80-5.40) m/uL Hgb 13.1 (11.4-16.0) gm/dL Hct 40.1 (34.0-46.0) % MCV 83.4 (80.0-100.0) fL MCH 27.2 (25.0-35.0) pg MCHC 32.7 (31.0-37.0) g/dL RDW 13.3 (11.5-15.5) % Plt Count 195 (150-450) k/uL MPV 9.8 Neutrophils % 51 % Lymphocytes % 40 % Monocytes % 6 % Eosinophils % 1 % Basophils % 0 % Neutrophils # 2.1 (1.3-7.7) k/uL Lymphocytes # 1.7 (1.0-4.8) k/uL Monocytes # 0.3 (0-1.0) k/uL Eosinophils # 0.0 (0-0.7) k/uL Basophils # 0.0 (0-0.2) k/uL Sodium 139 (137-145) mmol/L Potassium 4.3 (3.5-5.1) mmol/L Chloride 103 (98-107) mmol/L Carbon Dioxide 23 (22-30) mmol/L Anion Gap 13 mmol/L BUN 15 (7-17) mg/dL Creatinine 0.73 (0.52-1.04) mg/dL Est GFR (CKD-EPI)AfAm >90 (>60 ml/min/1.73 sqM) Est GFR (CKD-EPI)NonAf >90 (>60 ml/min/1.73 sqM) Glucose 86 (74-99) mg/dL Plasma Lactic Acid [place] (0.7-2.0) mmol/L Calcium 9.4 (8.4-10.2) mg/dL Total Bilirubin 0.7 (0.2-1.3) mg/dL AST 25 (14-36) U/L ALT 15 (4-34) U/L Alkaline Phosphatase 62 (38-126) U/L Total Protein 7.3 (6.3-8.2) g/dL Albumin 4.3 (3.5-5.0) g/dL Lipase 108 (23-300) U/L Urine Color Yellow Urine Appearance Cloudy H (Clear) Urine pH 5.0 (5.0-8.0) Ur Specific [place] 1.029 (1.001-1.035) Urine Protein Trace H (Negative) Urine Glucose (UA) Negative (Negative) Urine Ketones Negative (Negative) Urine Blood Negative (Negative) Urine Nitrite Negative (Negative) Urine Bilirubin Negative (Negative) Urine Urobilinogen <2.0 (<2.0) mg/dL Ur Leukocyte Esterase Small H (Negative) Urine RBC 3 (0-5) /hpf Urine WBC 5 (0-5) /hpf Ur Squamous Epith Cells 12 H (0-4) /hpf Urine Mucus Many H (None) /hpf 04/28/23 Range/Units 10:24 WBC (3.8-10.6) k/uL RBC (3.80-5.40) m/uL Hgb (11.4-16.0) gm/dL Hct (34.0-46.0) % MCV (80.0-100.0) fL MCH (25.0-35.0) pg MCHC (31.0-37.0) g/dL RDW (11.5-15.5) % Plt Count (150-450) k/uL MPV Neutrophils % % Lymphocytes % % Monocytes % % Eosinophils % % Basophils % % Neutrophils # (1.3-7.7) k/uL Lymphocytes # (1.0-4.8) k/uL Monocytes # (0-1.0) k/uL Eosinophils # (0-0.7) k/uL Basophils # (0-0.2) k/uL Sodium (137-145) mmol/L Potassium (3.5-5.1) mmol/L Chloride (98-107) mmol/L Carbon Dioxide (22-30) mmol/L Anion Gap mmol/L BUN (7-17) mg/dL Creatinine (0.52-1.04) mg/dL Est GFR (CKD-EPI)AfAm (>60 ml/min/1.73 sqM) Est GFR (CKD-EPI)NonAf (>60 ml/min/1.73 sqM) Glucose (74-99) mg/dL Plasma Lactic Acid [place] 0.9 (0.7-2.0) mmol/L Calcium (8.4-10.2) mg/dL Total Bilirubin (0.2-1.3) mg/dL AST (14-36) U/L ALT (4-34) U/L Alkaline Phosphatase (38-126) U/L Total Protein (6.3-8.2) g/dL Albumin (3.5-5.0) g/dL Lipase (23-300) U/L Urine Color Urine Appearance (Clear) Urine pH (5.0-8.0) Ur Specific [place] (1.001-1.035) Urine Protein (Negative) Urine Glucose (UA) (Negative) Urine Ketones (Negative) Urine Blood (Negative) Urine Nitrite (Negative) Urine Bilirubin (Negative) Urine Urobilinogen (<2.0) mg/dL Ur Leukocyte Esterase (Negative) Urine RBC (0-5) /hpf Urine WBC (0-5) /hpf Ur Squamous Epith Cells (0-4) /hpf Urine Mucus (None) /hpf Disposition Clinical Impression: RLQ abdominal pain, Nausea Disposition: ADMITTED IP TO THIS [facility] Condition: Stable Is patient prescribed a controlled substance at d/c from ED?: No Time of Disposition: 13:13 Decision to Admit Reason: Admit from EC Decision Date: 04/28/23 Decision Time: 13:13
[2023-04-28 10:51] LABS: Basophils % (A) 0 %; Eosinophils % (A) 1 %; HCT 40.1 % (34.0-46.0); HGB 13.1 gm/dL (11.4-16.0); Lymphocytes # (A) 1.7 k/uL (1.0-4.8); Lymphocytes % (A) 40 %; MCH 27.2 pg (25.0-35.0); MCHC 32.7 g/dL (31.0-37.0); MCV 83.4 fL (80.0-100.0); Mean Platelet Volume 9.8; Monocytes # (A) 0.3 k/uL (0-1.0); Monocytes % (A) 6 %; Neutrophils # (A) 2.1 k/uL (1.3-7.7); Neutrophils % (A) 51 %; Platelet Count 195 k/uL (150-450); RDW 13.3 % (11.5-15.5); WBC 4.1 k/uL (3.8-10.6)
[2023-04-28 11:07] LABS: ALT 15 U/L (4-34); AST 25 U/L (14-36); African American GFR (CKD) >90 (>60 ml/min/1.73 sqM); Albumin 4.3 g/dL (3.5-5.0); Alkaline Phosphatase 62 U/L (38-126); Anion Gap 13 mmol/L; Blood Urea Nitrogen 15 mg/dL (7-17); Calcium 9.4 mg/dL (8.4-10.2); Carbon Dioxide 23 mmol/L (22-30); Chloride 103 mmol/L (98-107); Glucose 86 mg/dL (74-99); Lipase 108 U/L (23-300); Non-African American GFR(CKD) >90 (>60 ml/min/1.73 sqM); Potassium 4.3 mmol/L (3.5-5.1); Sodium 139 mmol/L (137-145); Total Bilirubin 0.7 mg/dL (0.2-1.3); Total Protein 7.3 g/dL (6.3-8.2)
--- NOTE | 2023-04-28 11:09 | CT ---
EXAMINATION: CT ABDOMEN AND PELVIS WITH IV CONTRAST DATE OF EXAMINATION: 04/28/2023. COMPARISON: None available. INDICATION: Right lower quadrant pain. PROCEDURE: Axial CT of the abdomen and pelvis was performed with contrast and sagittal and coronal reformatted images were performed. CT dose lowering techniques were used, to include: automated expos ure control, adjustment for patient size, and/or use of iterative reconstruction. 100 mL of Isovue-30 0 was given intravenously. FINDINGS: LOWER CHEST : The visualized lung bases are clear. There are no pleural or pericardial effusions. ABDOMEN: Liver and Biliary system: Normal. Adrenal glands: Normal. Kidneys and ureters: Normal. Spleen: Normal. Pancreas: Normal. Gallbladder: Surgically absent. Lymph nodes, Peritoneum and mesentery: There is no mesenteric or retroperitoneal lymphadenopathy. Gastrointestinal tract: There are no dilated loops of bowel or free intraperitoneal air. The appe ndix is normal. Endoscopic band is seen just slightly inferior to the gastroesophageal junction. Aorta/IVC: No aortic aneurysm. IVC normal. Abdominal wall: Normal. PELVIS: Fluid: There is no free fluid in the pelvis. Lymph Nodes: There is no pelvic or inguinal lymphadenopathy.. Urinary bladder: Normal. BONES: There are no osseous destructive lesions.. ADDITIONAL SIGNIFICANT FINDINGS: None. IMPRESSION: 1. No acute process within the abdomen or pelvis.. 2. Slightly low positioning of the laparoscopic band.
[2023-04-28 11:12] LABS: Appearance,Urine Cloudy (Clear); Bilirubin,Urine Negative (Negative); Blood,Urine Negative (Negative); Color,Urine Yellow; Glucose,Urine (UA) Negative (Negative); Ketones,Urine Negative (Negative); Leukocyte Esterase,Urine Small (Negative); Mucus,Urine Many /hpf; Nitrite,Urine Negative (Negative); Protein,Urine Trace (Negative); RBC,Urine 3 /hpf (0-5); Specific Gravity,Urine 1.029 (1.001-1.035); Squamous Epithelial Cell,Urine 12 /hpf (0-4); Urobilinogen,Urine <2.0 mg/dL (<2.0); WBC,Urine 5 /hpf (0-5)
[2023-04-28] MEDS ORDERED: NALOXONE 0.4 MG/ML 1 ML VIAL IV PRN (13:14)
[2023-04-28] MEDS ORDERED: KETOROLAC 15 MG/ML 1 ML VIAL IVP PRN (13:14)
[2023-04-28] MEDS ORDERED: ONDANSETRON 4 MG/2 ML VIAL IVP PRN (13:14)
[2023-04-28] MEDS: SODIUM CHLORIDE 0.9% 1,000 ML IV SCH ×2 (13:39→22:06)
[2023-04-28] MEDS ORDERED: HYDROcodone/APAP 5-325MG 1 EACH TAB PO PRN (14:10)
[2023-04-28] MEDS ORDERED: HYDROmorphone 1 MG/ML 1 ML SYRINGE IVP PRN (14:10)
[2023-04-28] MEDS ORDERED: HYDROmorphone 0.5 MG/0.5 ML SYRINGE IVP PRN (14:10)
--- NOTE | 2023-04-28 14:17 | P.GSHP ---
History of Present Illness H&P Date: 04/28/23 Chief Complaint: Abdominal pain 53-year-old female presents to the ER with complaints of abdominal pain that began overnight. Pain is in the right upper to mid abdomen. Associated with nausea, some vomiting, and anorexia. Feels bloated. Increased pain with movement. No fevers. No change in bowel habits. Patient's labs are normal. She'll CAT scan showing a normal appendix. She is status post cholecystectomy in the past. Gastric pouch somewhat distended. Band appears somewhat tight on CAT scan. Patient says she does not have dysphagia currently. 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 History of Any Multi-Drug Resistant Organisms: None Reported Past Surgical History: Bariatric Surgery, Cholecystectomy, Hysterectomy Additional Past Surgical History / Comment(s): lap band surgery (lap band port replacement -) Past Anesthesia/Blood Transfusion Reactions: Postoperative Nausea & Vomiting (PONV) Additional Past Anesthesia/Blood Transfusion Reaction / Comment(s): no hx blood transfusion Past Psychological History: No Psychological Hx Reported Smoking Status: Never smoker Past Alcohol Use History: None Reported Past Drug Use History: None Reported - Past Family History Mother Family Medical History: No Reported History Medications and Allergies Home Medications Medication Instructions Recorded Confirmed Type Triamterene-Hctz 37.5-25Mg 1 cap PO DAILY 11/18/18 10/06/22 History [Dyazide 37.5-25 Capsule] Azithromycin [Zithromax] 500 mg PO DAILY #5 tab 11/12/21 10/06/22 Rx Allergies Allergy/AdvReac Type Severity Reaction Status Date / Time Penicillins Allergy Rash/Hives Verified 04/28/23 09:12 prednisone Allergy Dyspnea Verified 04/28/23 09:12 Sulfa (Sulfonamide Allergy Rash/Hives Verified 04/28/23 09:12 Antibiotics) Surgical - Exam Vital Signs Temp Pulse Resp BP Pulse Ox 98.4 F 72 16 118/83 99 04/28/23 09:10 04/28/23 09:10 04/28/23 09:10 04/28/23 09:10 04/28/23 09:10 Physical exam: General: Well-developed, well-nourished HEENT: Normocephalic, sclerae nonicteric Abdomen: Right-sided abdominal tenderness, nondistended Extremities: No edema Neuro: Alert and oriented Results - Labs 04/28/23 10:24 04/28/23 10:24 Abnormal Lab Results - Last 24 Hours (Table) 04/28/23 Range/Units 10:24 Urine Appearance Cloudy H (Clear) Urine Protein Trace H (Negative) Ur Leukocyte Esterase Small H (Negative) Ur Squamous Epith Cells 12 H (0-4) /hpf Urine Mucus Many H (None) /hpf Diabetes panel 04/28/23 Range/Units 10:24 Sodium 139 (137-145) mmol/L Potassium 4.3 (3.5-5.1) mmol/L Chloride 103 (98-107) mmol/L Carbon Dioxide 23 (22-30) mmol/L BUN 15 (7-17) mg/dL Creatinine 0.73 (0.52-1.04) mg/dL Glucose 86 (74-99) mg/dL Calcium 9.4 (8.4-10.2) mg/dL AST 25 (14-36) U/L ALT 15 (4-34) U/L Alkaline Phosphatase 62 (38-126) U/L Total Protein 7.3 (6.3-8.2) g/dL Albumin 4.3 (3.5-5.0) g/dL Calcium panel 04/28/23 Range/Units 10:24 Calcium 9.4 (8.4-10.2) mg/dL Albumin 4.3 (3.5-5.0) g/dL Pituitary panel 04/28/23 Range/Units 10:24 Sodium 139 (137-145) mmol/L Potassium 4.3 (3.5-5.1) mmol/L Chloride 103 (98-107) mmol/L Carbon Dioxide 23 (22-30) mmol/L BUN 15 (7-17) mg/dL Creatinine 0.73 (0.52-1.04) mg/dL Glucose 86 (74-99) mg/dL Calcium 9.4 (8.4-10.2) mg/dL Adrenal panel 04/28/23 Range/Units 10:24 Sodium 139 (137-145) mmol/L Potassium 4.3 (3.5-5.1) mmol/L Chloride 103 (98-107) mmol/L Carbon Dioxide 23 (22-30) mmol/L BUN 15 (7-17) mg/dL Creatinine 0.73 (0.52-1.04) mg/dL Glucose 86 (74-99) mg/dL Calcium 9.4 (8.4-10.2) mg/dL Total Bilirubin 0.7 (0.2-1.3) mg/dL AST 25 (14-36) U/L ALT 15 (4-34) U/L Alkaline Phosphatase 62 (38-126) U/L Total Protein 7.3 (6.3-8.2) g/dL Albumin 4.3 (3.5-5.0) g/dL Assessment and Plan (1) Right upper quadrant abdominal pain Narrative/Plan: 53-year-old female with right-sided abdominal pain. With the history of lap band and the prominence of the proximal gastric pouch recommend emptying the band at this time to see if this helps with her discomfort. Plan observation overnight. Keep nothing by mouth. The patient's lap band port was palpated. The site was aseptically prepped. The Pardo needle was advanced into the port. A total of 6 ml of fluid was evacuated. Pressure was held and a sterile dressing was applied. Current Visit: Yes Status: Acute Code(s): R10.11 - RIGHT UPPER QUADRANT PAIN SNOMED Code(s): 182489143
[2023-04-28] MEDS: PANTOPRAZOLE 40 MG/10 ML VIAL IV SCH (14:36)
[2023-04-28] MEDS: HEPARIN SODIUM,PORCINE 5,000 UNIT/ML 1 ML VIAL SQ SCH ×2 (15:18→23:16)
[2023-04-29] MEDS: SODIUM CHLORIDE 0.9% 1,000 ML IV SCH ×2 (04:20→13:46)
[2023-04-29 05:58] LABS: Basophils % (A) 1 %; Eosinophils % (A) 2 %; HCT 36.1 % (34.0-46.0); HGB 11.7 gm/dL (11.4-16.0); Lymphocytes # (A) 1.3 k/uL (1.0-4.8); Lymphocytes % (A) 47 %; MCH 27.2 pg (25.0-35.0); MCHC 32.4 g/dL (31.0-37.0); MCV 83.8 fL (80.0-100.0); Mean Platelet Volume 7.2; Monocytes # (A) 0.2 k/uL (0-1.0); Monocytes % (A) 6 %; Neutrophils # (A) 1.1 k/uL (1.3-7.7); Neutrophils % (A) 43 %; Platelet Count 176 k/uL (150-450); RDW 13.2 % (11.5-15.5); WBC 2.7 k/uL (3.8-10.6)
[2023-04-29 06:16] LABS: African American GFR (CKD) >90 (>60 ml/min/1.73 sqM); Anion Gap 8 mmol/L; Blood Urea Nitrogen 11 mg/dL (7-17); Calcium 8.4 mg/dL (8.4-10.2); Carbon Dioxide 22 mmol/L (22-30); Chloride 109 mmol/L (98-107); Glucose 76 mg/dL (74-99); Non-African American GFR(CKD) >90 (>60 ml/min/1.73 sqM); Potassium 4.1 mmol/L (3.5-5.1); Sodium 139 mmol/L (137-145)
[2023-04-29] MEDS: HEPARIN SODIUM,PORCINE 5,000 UNIT/ML 1 ML VIAL SQ SCH (07:40)
[2023-04-29] MEDS: PANTOPRAZOLE 40 MG/10 ML VIAL IV SCH (08:33)
[2023-04-29 08:59] VITALS: BP 116/58; PULSE 65; RESP 20; TEMP 98
--- NOTE | 2023-04-29 15:27 | P.DS ---
Providers Date of admission: 04/28/23 13:14 Expected date of discharge: 04/29/23 Attending physician: Cayetano Seth Primary care physician: Steven Simon [facility] Course: Discharge diagnosis 1. Right sided abdominal pain status post stenting of LAP-BAND. Symptoms resolved. Hospital course This is a 53-year-old female who presented with right-sided upper abdominal pain with nausea and some vomiting. Patient reported feeling noted. Increased pain with movement. No change in bowel habits. Computed tomography scan showed normal appendix. Patient status post cholecystectomy in the past. Patient has history of LAP-BAND. Dr. Seth did remove the fluid from the lap band. Patient's pain and nausea resolved. She was able to tolerate diet. She has been up and ambulating. She is stable for discharge. Please refer to chart for any further details. Physician Vocational Rehabilitation Teacher note has been reviewed by physician. Signing provider agrees with the documented findings, assessment, and plan of care. Patient Condition at Discharge: Stable Plan - Discharge Summary New Discharge Prescriptions: Continue Omeprazole 40 mg PO DAILY PRN PRN Reason: acid reflux Discharge Medication List Omeprazole 40 mg PO DAILY PRN 04/28/23 [History] Follow [facility]Ref[facility] [place] [facility] [place] 4 Weeks Steven Simon DO [Primary Care Provider] - 1-2 days Patient Instructions/Handouts: Acute Abdominal Pain (DC), Adjustable Gastric Band Surgery (DC) Discharge Disposition: HOME SELF-CARE
== END 2023-04-29 14:25 | disposition home or self-care (01) ==
LOC: EC 08:55 → 6NMEDSUR 13:14
PROVIDERS: ADMIT Surgery; ATTEND Surgery
DX: R10.11 Right upper quadrant pain (principal); R11.2 Nausea with vomiting, unspecified; I10 Essential (primary) hypertension; Z90.49 Acquired absence of other specified parts of digestive tract; Z98.84 Bariatric surgery status; Z79.899 Other long term (current) drug therapy; Z88.0 Allergy status to penicillin; Z88.2 Allergy status to sulfonamides
CPT/HCPCS: 96361 ×3; 96374; 96375; 99285; 36415; 80053; 80048; 83605; 83690; 85025 ×2; 81001; 74177; G0378 ×2; J2405; J1885; C9113; Q9967

== ENCOUNTER → 2023-05-03 | Outpatient (CLI) | payer MEDICAID ==
[2023-05-03 14:39] VITALS: BP 132/65; PULSE 61; RESP 16; TEMP 97.8; BMI 26.9
--- NOTE | 2023-05-03 15:49 | P.BASOAP ---
Subjective Progress Note Date: 05/03/23 Principal diagnosis: Abdominal pain Patient feeling better at this time. She was hospitalized overnight last week when she was having upper abdominal pain. Pain was more on the right side of her abdomen. Her port is on that side. Her band was loosened in the ER. Her pain was better the following morning and she was discharged home. She had a CAT scan and basic lab work all of which was normal. She has never had a colonoscopy. No bowel complaints. Pain is usually after meals. No nausea at this time. Objective - Vital Signs Vital signs: Vital Signs Temp 97.8 F 05/03/23 14:29 Pulse 61 05/03/23 14:29 Resp 16 05/03/23 14:29 BP 132/65 05/03/23 14:29 Pulse Ox FiO2 Intake & Output 05/02/23 05/03/23 05/03/23 18:59 06:59 18:59 Weight 75.75 kg - Exam Physical exam: General: Well-developed, well-nourished HEENT: Normocephalic, sclerae nonicteric Abdomen: Nontender, nondistended Extremities: No edema Neuro: Alert and oriented Assessment/Plan (1) Right upper quadrant abdominal pain Narrative/Plan: 53-year-old female with abdominal pain. We'll schedule for upper and lower endoscopy for diagnosis of epigastric abdominal pain and colon cancer screening. Possibly add fluid to the patient's band next week. Plan: Date: 05/03/23 Initial Weight: 112.945 kg Initial BMI: 40.1 Current Weight: 75.75 kg Current BMI: 26.9 Type of Surgery: Adjustable Gastric Banding Total Volume in Band: 5.2 Previous Volume: Volume Removed: Volume Added: Band Size:
== END ==
LOC: BARWHC3 13:50
PROVIDERS: ATTEND Surgery
DX: Z12.11 Encounter for screening for malignant neoplasm of colon (principal); R10.13 Epigastric pain; Z88.0 Allergy status to penicillin; Z88.2 Allergy status to sulfonamides; Z88.8 Allergy status to other drugs, medicaments and biological substances
CPT/HCPCS: 99211

== ENCOUNTER 2023-05-10 07:46 | Day surgery (SDC) | payer MEDICAID ==
[2023-05-06 11:01] VITALS: BMI 25.7
[~2023-05-10 07:46] MED LIST changes: -HEPARIN SODIUM,PORCINE 5,000 UNIT/ML 1 ML VIAL SQ ONE; +LACTATED RINGERS 1,000 ML IV SCH; +LIDOCAINE 1% (10MG/ML) FOR IV START INTRADERMA PRN; -ceFAZolin IN SWFI 2 GM/20 ML SYRINGE IVP ONE
[2023-05-10 08:08] VITALS: RESP 16; TEMP 97.3
[2023-05-10] MEDS ORDERED: PROPOFOL 10 MG/ML 20 ML VIAL IV ONE (08:31)
[2023-05-10] MEDS ORDERED: ONDANSETRON 4 MG/2 ML VIAL ONE (08:31)
--- NOTE | 2023-05-10 08:35 | P.GSHP ---
History of Present Illness H&P Date: 05/10/23 Chief Complaint: Screening, abdominal pain Patient here for upper and lower endoscopy. Refer recent bariatric note. 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 History of Any Multi-Drug Resistant Organisms: None Reported Past Surgical History: Bariatric Surgery, Cholecystectomy, Hysterectomy Additional Past Surgical History / Comment(s): lap band surgery (lap band port replacement 5-19) [facility] 2018 Past Anesthesia/Blood Transfusion Reactions: Postoperative Nausea & Vomiting (PONV) Additional Past Anesthesia/Blood Transfusion Reaction / Comment(s): no hx blood transfusion Smoking Status: Never smoker - Past Family History Mother Family Medical History: No Reported History Medications and Allergies Home Medications Medication Instructions Recorded Confirmed Type Omeprazole 40 mg PO DAILY PRN 04/28/23 05/10/23 History Allergies Allergy/AdvReac Type Severity Reaction Status Date / Time Penicillins Allergy Rash/Hives, Verified 05/10/23 08:10 difficulty breathing prednisone Allergy Dyspnea Verified 05/10/23 08:10 Sulfa (Sulfonamide Allergy Rash/Hives, Verified 05/10/23 08:10 Antibiotics) difficulty breathing Surgical - Exam Vital Signs Temp Pulse Resp BP Pulse Ox 97.3 F L 66 16 111/75 99 05/10/23 08:07 05/10/23 08:07 05/10/23 08:07 05/10/23 08:07 05/10/23 08:07 Physical exam: General: Well-developed, well-nourished HEENT: Normocephalic, sclerae nonicteric Abdomen: Nontender, nondistended Extremities: No edema Neuro: Alert and oriented Assessment and Plan (1) Colon cancer screening Narrative/Plan: Will proceed with upper and lower endoscopy Current Visit: Yes Status: Acute Code(s): Z12.11 - ENCOUNTER FOR SCREENING FOR MALIGNANT NEOPLASM OF COLON SNOMED Code(s): 176034412
--- NOTE | 2023-05-10 09:17 | P.PCN ---
Date of Procedure: 05/10/23 Procedure(s) Performed: PREOPERATIVE DIAGNOSIS: Epigastric pain, screening POSTOPERATIVE DIAGNOSIS: Mild gastritis, gastric polyps, mild distal esophagitis, transverse colon polyps, rectosigmoid colon polyp PROCEDURE: 1. EGD with biopsy 2. Colonoscopy with snare polypectomy ANESTH[place]: [facility] [place]GEON: Cayetano Seth M.D. SPECIMENS: Antrum, distal esophagus, polyps ENDOSCOPIC PROCEDURE: The patient was on the endoscopy table in the left decubitus position. The Olympus gastroscope was inserted into the oropharynx and passed under direct visualization to the region of the third portion of the duodenum. From that point the scope was slowly withdrawn inspecting all surfaces carefully. There were no neoplastic inflammatory or polypoid lesions throughout the duodenum. The pylorus was widely patent. The stomach was carefully inspected. There was mild gastritis present. Multiple polyps in the stomach were seen the largest of which was biopsied. A biopsy of the antrum took place to rule out H. pylori. Retroflexion revealed a normal band plication. There was no signs of erosion or prolapse. The esophagus was then carefully examined. Patient had mild distal esophagitis with 2 small linear erosions each measuring only a few millimeters in length. A biopsy was taken. The remainder the esophagus appear normal. The patient was kept on the endoscopy table in the left decubitus position. The Olympus colonoscope was inserted into the anus and passed under direct visualization to the base of the cecum. The appendiceal orifice was visualized. From that point the scope was slowly withdrawn inspecting all surfaces carefully. There were no neoplastic inflammatory or polypoid lesions throughout the cecum and ascending colon. In the transverse colon there were 3 polyps removed using the snare with cautery technique. The remainder of the transverse descending sigmoid and rectum appeared normal on scope removal. Unfortunately on the way in to the colon and we visualized what we thought represented a adenomatous appearing polyp on a stalk in the rectosigmoid region. We went back and forth through that area numerous times and were unable to find the polyp on scope withdrawal. After numerous attempts we aborted. Will plan shorter-term follow-up. There was no visible diverticulosis. Digital rectal examination was normal. The patient was taken to the recovery room in stable condition per anesthesia guidelines. The patient's lap band port was palpated. The site was aseptically prepped. The Pardo needle was advanced into the port. A total of 3 ml of fluid was added. Pressure was held and a sterile dressing was applied. RECOMMENDATIONS: Await biopsy results. Will advise repeat colonoscopy one year given the possible missed polyp in the rectosigmoid region. Continue antiacids. Monitor for recurrent abdominal pain
[2023-05-10 09:51] VITALS: BP 102/61; PULSE 59
== END 2023-05-10 10:02 | disposition home or self-care (01) ==
LOC: ORWHC2ENDO 07:46
PROVIDERS: ATTEND Surgery
DX: Z12.11 Encounter for screening for malignant neoplasm of colon (principal); D12.3 Benign neoplasm of transverse colon; D12.4 Benign neoplasm of descending colon; D12.5 Benign neoplasm of sigmoid colon; D12.7 Benign neoplasm of rectosigmoid junction; K21.00 Gastro-esophageal reflux disease with esophagitis, without bleeding; K31.7 Polyp of stomach and duodenum; Z88.0 Allergy status to penicillin; Z88.1 Allergy status to other antibiotic agents; Z88.2 Allergy status to sulfonamides; Z90.49 Acquired absence of other specified parts of digestive tract; Z79.899 Other long term (current) drug therapy
CPT/HCPCS: 88305; 45385; 43239; J2405; J2704

== ENCOUNTER → 2023-05-27 | Outpatient (CLI) | payer MEDICAID ==
--- NOTE | 2023-05-27 10:30 | P.BASOAP ---
Subjective Progress Note Date: 05/27/23 Principal diagnosis: Morbid obesity Patient returns for recheck. No further abdominal pain. She was recently hospitalized with severe right-sided abdominal pain. Workup was negative. She had an EGD. Her band was emptied. She had 6 mL removed. She had a recent EGD and at that time 3 mL was added back to the band. No recurrent pain. She has lost 3 pounds. She still feels little restriction. She wants fluid added. Objective - Exam Abdomen: Soft, nontender, nondistended Assessment/Plan (1) Morbid obesity Narrative/Plan: Patient requesting additional lap band fill. We'll add 2 mL at this time. The patient's lap band port was palpated. The site was aseptically prepped. The Pardo needle was advanced into the port. A total of 2ml of fluid was added for a total of 5 mL. Pressure was held and a sterile dressing was applied. Plan: Date: Initial Weight: 112.945 kg Initial BMI: Current Weight: Current BMI: Type of Surgery: Total Volume in Band: 5.2 Previous Volume: Volume Removed: Volume Added: Band Size:
[2023-05-27 10:44] VITALS: BP 131/79; PULSE 68; TEMP 98.2; BMI 26.3
== END ==
LOC: BARWHC3 09:55
PROVIDERS: ATTEND Surgery
DX: E66.01 Morbid (severe) obesity due to excess calories (principal); Z46.51 Encounter for fitting and adjustment of gastric lap band; Z98.84 Bariatric surgery status; Z68.26 Body mass index [BMI] 26.0-26.9, adult; Z88.0 Allergy status to penicillin; Z88.2 Allergy status to sulfonamides; Z88.8 Allergy status to other drugs, medicaments and biological substances
CPT/HCPCS: 99212

== ENCOUNTER → 2023-06-21 | Outpatient (CLI) | payer MEDICAID ==
[2023-06-21 13:46] VITALS: BP 128/87; PULSE 69; RESP 16; TEMP 97.8; BMI 28.2
--- NOTE | 2023-06-21 14:11 | P.BASOAP ---
Subjective Progress Note Date: 06/21/23 Principal diagnosis: Morbid obesity Patient returns for recheck. Patient says she has had increased hunger. No pain. She has gained 12 pounds since her last visit. States she is having bilateral lower extremity leg swelling. Plan to discuss fluid retention with her primary care doctor. She would like more fluid added. Currently at 5 cc. She was at 6 cc when we loosened her because of severe abdominal pain. Objective - Vital Signs Vital signs: Vital Signs Temp 97.8 F 06/21/23 13:40 Pulse 69 06/21/23 13:40 Resp 16 06/21/23 13:40 BP 128/87 06/21/23 13:40 Pulse Ox FiO2 Intake & Output 06/20/23 06/21/23 06/21/23 18:59 06:59 18:59 Weight 79.379 kg - Exam Abdomen: Soft, nontender, nondistended Assessment/Plan (1) Morbid obesity Narrative/Plan: Patient interested in adding more fluid to her band. No abdominal pain currently. The patient's lap band port was palpated. The site was aseptically prepped. The Pardo needle was advanced into the port. A total of 0.5 ml of fluid was added for a total of 5.5 cc. Pressure was held and a sterile dressing was applied. Plan: Date: 06/21/23 Initial Weight: 112.945 kg Initial BMI: 40.1 Current Weight: 79.379 kg Current BMI: 28.2 Type of Surgery: Adjustable Gastric Banding Total Volume in Band: 5.5 Previous Volume: Volume Removed: Volume Added: 0.5 Band Size:
== END ==
LOC: BARWHC3 13:31
PROVIDERS: ATTEND Surgery
DX: E66.01 Morbid (severe) obesity due to excess calories (principal); R63.2 Polyphagia; R10.9 Unspecified abdominal pain; M79.89 Other specified soft tissue disorders; Z46.51 Encounter for fitting and adjustment of gastric lap band; Z98.84 Bariatric surgery status; Z68.28 Body mass index [BMI] 28.0-28.9, adult; Z88.0 Allergy status to penicillin; Z88.2 Allergy status to sulfonamides; Z88.8 Allergy status to other drugs, medicaments and biological substances
CPT/HCPCS: 43999

== ENCOUNTER → 2023-07-26 | Outpatient (CLI) | payer MEDICAID ==
[2023-07-26 14:03] VITALS: BP 117/80; PULSE 81; RESP 16; TEMP 97.8; BMI 27.1
--- NOTE | 2023-07-26 14:49 | P.BASOAP ---
Subjective Progress Note Date: 07/26/23 Principal diagnosis: Morbid obesity Patient returns for recheck. Patient has lost 7 pounds but states it is not because of lack of appetite or restriction but because of a recent family . Patient feels she is still able to eat too much. She would like fluid added. She is currently at 5.5. She was emptied of 6 cc when she was having bad abdominal pain. We thought she was probably a little bit too tight at the time. Objective - Vital Signs Vital signs: Vital Signs Temp 97.8 F 07/26/23 13:55 Pulse 81 07/26/23 13:55 Resp 16 07/26/23 13:55 BP 117/80 07/26/23 13:55 Pulse Ox FiO2 Intake & Output 07/25/23 07/26/23 07/26/23 18:59 06:59 18:59 Weight 76.204 kg - Exam Abdomen: Soft, nontender, nondistended Assessment/Plan (1) Morbid obesity Narrative/Plan: 53-year-old female doing well after previous lap band. She wants a band adjustment. We have decided to add 0.3 cc. The patient's lap band port was palpated. The site was aseptically prepped. The Pardo needle was advanced into the port. A total of 0.3 ml of fluid was added for a total of 5.8 cc. Pressure was held and a sterile dressing was applied. Plan: Date: 07/26/23 Initial Weight: 112.945 kg Initial BMI: 40.1 Current Weight: 76.204 kg Current BMI: 27.1 Type of Surgery: Adjustable Gastric Banding Total Volume in Band: 5.5 Previous Volume: Volume Removed: Volume Added: Band Size:
== END ==
LOC: BARWHC3 13:37
PROVIDERS: ATTEND Surgery
DX: E66.01 Morbid (severe) obesity due to excess calories (principal); R10.9 Unspecified abdominal pain; Z98.84 Bariatric surgery status; Z46.51 Encounter for fitting and adjustment of gastric lap band; Z88.0 Allergy status to penicillin; Z88.2 Allergy status to sulfonamides; Z88.8 Allergy status to other drugs, medicaments and biological substances; Z68.27 Body mass index [BMI] 27.0-27.9, adult
CPT/HCPCS: 43999

== ENCOUNTER → 2023-09-20 | Outpatient (CLI) | payer MEDICAID ==
[2023-09-20 14:15] VITALS: BP 115/76; PULSE 72; TEMP 98; BMI 27.6
--- NOTE | 2023-09-20 16:28 | P.BASOAP ---
Subjective Progress Note Date: 09/20/23 Principal diagnosis: Morbid obesity 53-year-old female returns for recheck. Last seen 07/26. Patient had 0.3 cc added at the time. She has gained 3 pounds. Wants to go back to 6 cc. Patient had her band loosened because of atypical upper abdominal pain. This did seem to help. Patient was not having significant dysphagia at the time. Patient is worried that her band is leaking again. Objective - Vital Signs Vital signs: Vital Signs Temp 98 F 09/20/23 13:49 Pulse 72 09/20/23 13:49 Resp BP 115/76 09/20/23 13:49 Pulse Ox FiO2 Intake & Output 09/19/23 09/20/23 09/20/23 18:59 06:59 18:59 Weight 77.564 kg - Exam Abdomen: Soft, nontender, nondistended Assessment/Plan (1) Morbid obesity Narrative/Plan: 53-year-old female with morbid obesity. Patient worried her band is leaking because of decreased restriction. Her band was accessed. We added 0.2 cc. She is now up to 6 cc again. All of the fluid was present in the band. The patient's lap band port was palpated. The site was aseptically prepped. The Pardo needle was advanced into the port. A total of 0.2 ml of fluid was added. Pressure was held and a sterile dressing was applied. Plan: Date: 09/20/23 Initial Weight: 112.945 kg Initial BMI: 40.1 Current Weight: 77.564 kg Current BMI: 27.6 Type of Surgery: Total Volume in Band: 6.0 Previous Volume: Volume Removed: Volume Added: 0.2 Band Size:
== END ==
LOC: BARWHC3 13:35
PROVIDERS: ATTEND Surgery
DX: E66.01 Morbid (severe) obesity due to excess calories (principal); Z68.27 Body mass index [BMI] 27.0-27.9, adult; Z88.0 Allergy status to penicillin; Z88.2 Allergy status to sulfonamides; Z88.8 Allergy status to other drugs, medicaments and biological substances
CPT/HCPCS: 43999

== ENCOUNTER → 2024-04-22 | Outpatient (CLI) | payer MEDICAID ==
--- NOTE | 2024-04-22 11:35 | MR ---
EXAMINATION TYPE: MR cervical spine wo con DATE OF EXAM: 04/22/2024 10:47 AM COMPARISON: None. CLINICAL INDICATION: Female, 54 years old with history of M54.12 CERVICAL PAIN, Neck pain, right side of tongue numbness and right arm weakness x2 years TECHNIQUE: Multiplanar MultiSpin echo imaging of the cervical spine was performed. FINDINGS: C2-C3: No evidence for degenerative disc disease. No disc bulge/herniation or protrusion. No Canal stenosis. Foramina are patent bilaterally. C3-C4: There is mild decreased signal and loss of height compatible with degenerative disc disease. P osterior disc bulge with mild effacement of ventral thecal sac. No evidence for disc herniation or ce ntral stenosis. Mild left foraminal encroachment. C4-C5: Mild to moderate disc desiccation with posterior disc bulge and partially encapsulating spur g reatest posteriorly and centrally into the left. There is left lateral recess stenosis and moderate b ilateral neural foraminal encroachment. No evidence for central stenosis at this time. C5-C6: Moderate disc desiccation with decreased signal loss height noted. There is right paracentral disc protrusion with slight interval progression and ventral cord contact. Mild increased signal with in the cervical spinal cord could reflect early compressive myelopathy. Borderline central stenosis p resent. Mild left greater than right foraminal encroachment. C6-C7: Mild to moderate disc desiccation. Posterior disc bulge with partial encapsulating spur. Mild effacement ventral thecal sac. Moderate right-sided foraminal encroachment with [id number] left foraminal encroachment. No evidence for central stenosis at this time. C7-T1: Mild disc desiccation. Posterior disc bulge with small annular tear. No ruben herniation. No c entral stenosis or foraminal encroachment. Cervical segments are intact. There is normal alignment. Cervical spinal cord is of normal signal. Craniovertebral junction relationships are within normal limits. Scattered ventral spondylosis. IMPRESSION: 1. Multilevel degenerative disc disease as outlined above. 2. Interval progression of right paracentral disc protrusion at C5-6 with ventral CORD contact. Early compressive myelopathy difficult to exclude. Underlying borderline central stenosis at this level. 3. Varying degrees of neural foraminal encroachment as outlined above. [facility], , 04/22/2024 11:33 AM
== END | disposition home or self-care (01) ==
LOC: RADMRIMAIN 09:59
PROVIDERS: ATTEND Family Medicine
DX: M50.122 Cervical disc disorder at C5-C6 level with radiculopathy (principal); M47.22 Other spondylosis with radiculopathy, cervical region; M99.71 Connective tissue and disc stenosis of intervertebral foramina of cervical region
CPT/HCPCS: 72141

== ENCOUNTER → 2024-06-12 | Outpatient (CLI) | payer MEDICAID ==
--- NOTE | 2024-06-12 08:37 | CT ---
EXAMINATION TYPE: CT abdomen pelvis w con DATE OF EXAM: 06/12/2024 8:19 AM COMPARISON: 04/28/2023 CLINICAL INDICATION: Female, 54 years old with history of R10.84 abdominal pain; abdominal pain and l ow blood sugars TECHNIQUE: Axial CT abdomen pelvis w con;Sagittal and coronal reformats were created on a separate w orkstation. Contrast used:100ml mL of Isovue 300 with IV Contrast, (none if empty) Oral contrast used: with Oral Contrast (none if empty) CT DLP: 659.70 mGycm, Automated exposure control for dose reduction was used. FINDINGS: LOWER CHEST: Unremarkable ABDOMEN LIVER: Unremarkable GALLBLADDER AND BILE DUCTS: Gallbladder is surgically absent with mild intrahepatic and extra hepatic biliary dilatation likely physiologic and a postcholecystectomy change. No evidence of choledocholit hiasis. PANCREAS: Unremarkable. SPLEEN: Unremarkable. ADRENAL GLANDS: Unremarkable. KIDNEYS AND URETERS: No evidence of hydronephrosis or renal calculus. The ureters are unremarkable. PELVIS BLADDER: No evidence for wall thickening or mass given limitations of exam. REPRODUCTIVE: Unremarkable. ABDOMEN & PELVIS STOMACH AND BOWEL: Post gastric lap band changes to the stomach. Band appears in appropriate angle. Mild thickening of the esophagus with circumferential wall thicken ingr measuring up to 8 mm just proximal to the lab band. No evidence of bowel obstruction. And its is visualized and normal. PERITONEUM/RETROPERITONEUM: No evidence of pneumoperitoneum or free fluid. VASCULATURE: No evidence of aortic aneurysm. MUSCULOSKELETAL: No acute osseous abnormalities LYMPH NODES: No gross evidence for lymphadenopathy. SOFT TISSUE/ABDOMINAL WALL: Unremarkable IMPRESSION: Post lap band changes with circumferential esophageal wall thickening correlate for esophagitis. This is mildly more pronounced compared to prior No additional acute abdominal process to explain the pat ient's pain. [facility], , 06/12/2024 8:35 AM
== END | disposition home or self-care (01) ==
LOC: RADCTMAIN 06:23
PROVIDERS: ATTEND Family Medicine
DX: K20.90 Esophagitis, unspecified without bleeding (principal); R10.2 Pelvic and perineal pain; Z98.84 Bariatric surgery status
CPT/HCPCS: 74177; Q9967

== ENCOUNTER → 2024-11-09 | Outpatient (CLI) | payer MEDICAID ==
--- NOTE | 2024-11-09 13:01 | CA ---
Transthoracic Echo Report Name: Aby Mohan Age: 54 Gender: F : 1970 Exam Date: 11/09/2024 08:39 Exam Location: [facility] Ht (in): 66 Wt (lb): 165 Ordering Physician: Russ Gutierrez DO Attending/Referring Phys: Shiela Mora PAC Smt Technician Thomas Ignacio RDCS Procedure CPT: Indications: R53.83 OTHER FATIGUE R07.9 CHEST PAIN, UNSPECIFIED Cardiac Hx: Technical Quality: Good Contrast 1: Total Dose (mL): Contrast 2: Total Dose (mL): MEASUREMENTS (Male / Female) Normal Values 2D ECHO LV Diastolic Diameter PLAX 4.8 cm 4.2 - 5.9 / 3.9 - 5.3 cm LV Systolic Diameter PLAX 3.5 cm IVS Diastolic Thickness 0.7 cm 0.6 - 1.0 / 0.6 - 0.9 cm LVPW Diastolic Thickness 0.7 cm 0.6 - 1.0 / 0.6 - 0.9 cm LV Relative Wall Thickness 0.3 RV Internal Dim ED PLAX 2.7 cm LVOT Diameter 1.7 cm LA Systolic Diameter LX 3.2 cm 3.0 - 4.0 / 2.7 - 3.8 cm LV Diastolic Volume MOD 4C 74.1 cm??? LV Systolic Volume MOD 4C 33.5 cm??? LV Ejection Fraction MOD 4C 54.7 % LV Diastolic Length 4C 6.9 cm LV Systolic Length 4C 6.1 cm LV Diastolic Volume MOD 2C 86.6 cm??? LV Systolic Volume MOD 2C 38.7 cm??? LV Ejection Fraction MOD 2C 55.3 % LV Diastolic Length 2C 6.7 cm LV Systolic Length 2C 5.3 cm LA Volume 63.1 cm??? 18 - 58 / 22 - 52 cm??? LA Volume Index 33.5 cm???/m??? 16 - 28 cm???/m??? DOPPLER MV Area PHT 3.9 cm??? Mitral E Point Velocity 89.6 cm/s Mitral A Point Velocity 98.2 cm/s Mitral E to A Ratio 0.9 MV Deceleration Time 194.0 ms TR Peak Velocity 239.7 cm/s TR Peak Gradient 23.0 mmHg Right Atrial Pressure 10.0 mmHg Pulmonary Artery Systolic Pressu 33.0 mmHg Right Ventricular Systolic Press 33.0 mmHg FINDINGS Left Ventricle Left ventricular ejection fraction is estimated at 55-60%. Normal left ventricular systolic function with no obvious regional wall motion abnormalities. Left ventricular cavity size normal. Left ventricular wall thickness normal. Right Ventricle Normal right ventricular size and function. Right ventricular systolic pressure within normal limits. Right Atrium Normal right atrial size. Left Atrium Mildly increased left atrial volume. Mitral Valve Mitral valve thickened. No mitral stenosis. Mild mitral regurgitation. Aortic Valve Trileaflet aortic valve. No aortic stenosis. Trace aortic regurgitation. Tricuspid Valve Structurally normal tricuspid valve. No tricuspid stenosis. Mild tricuspid regurgitation. Pulmonic Valve Structurally normal pulmonic valve. No pulmonic stenosis. No pulmonic regurgitation. Pericardium No pericardial effusion. Aorta Aortic annulus normal. CONCLUSIONS 1. Normal left ventricular size and systolic function 2. Mild mitral and tricuspid regurgitation with no evidence of pulmonary hypertension 3. Trace aortic regurgitation Previewed by: Dr. Rylie Beth MD (Electronically Signed) Final Date: 09 November 2024 13:00
== END | disposition home or self-care (01) ==
LOC: RADECHMAIN 08:27
PROVIDERS: ATTEND Family Medicine
DX: I08.2 Rheumatic disorders of both aortic and tricuspid valves (principal); R53.83 Other fatigue
CPT/HCPCS: 93306